=== PATIENT | female | born 1985 | race Asian ===

== ENCOUNTER → 2019-03-15 11:18 | Outpatient (CLI) | payer OTHER, SELFPAY ==
[2019-03-15 13:13] LABS: Hematocrit 39.5 % (36-46); Mean Corpuscular HGB Conc 32.8 % (30-36); Mean Corpuscular Hemoglobin 27.9 PG (26-34); Platelet Count 295 X10^3/uL (150-400); Red Blood Cell Count 4.65 X10^6/uL (4.0-5.2); Red Cell Distribution Width 13.5 % (11.6-14.8); White Blood Cell Count 5.4 X10^3/uL (4.5-11.0)
[2019-03-15 13:39] LABS: Alanine Aminotransferase 7 IU/L (9-52); Albumin 4.2 g/dL (3.5-5.0); Albumin Globulin Ratio 1.2 (1.0-2.8); Alkaline Phosphatase 45 U/L (38-126); Aspartate Aminotransferase 17 IU/L (14-36); Bilirubin Total 0.3 mg/dL (0.2-1.3); Blood Urea Nitrogen 9 mg/dL (7-17); Calcium 8.7 mg/dL (8.4-10.2); Carbon Dioxide 27 mmol/L (22-32); Chloride 103 mmol/L (98-107); Cholesterol 141 mg/dL (140-199); Estimated Glomerular Filt Rate > 60.0 mL/min (>60); Globulin 3.4 g/dL (1.7-4.1); Glucose 77 mg/dL (70-100); HDL Cholesterol 41 mg/dL (40-60); HEMOLYSIS < 15 (0-50); LDL Cholesterol Calculated 74 mg/dL (<100); Potassium 3.8 mmol/L (3.4-5.1); Sodium 139 mmol/L (137-145); Total Protein 7.6 g/dL (6.3-8.2); Triglycerides 132 mg/dL (35-150)
[2019-03-15 14:09] LABS: TSH w/ Reflex to FT4 2.05 uIU/mL (0.47-4.68)
[2019-03-15 15:21] LABS: Neutrophils Absolute Manual 3132 /uL (3000-5900); RBC Morphology Normal Morphology; Total Cells Counted 100
== END ==
PROVIDERS: PCP Nurse Practitioner; Visit Provider Nurse Practitioner
DX: R22.2 Localized swelling, mass and lump, trunk (principal); R22.32 Localized swelling, mass and lump, left upper limb
CPT/HCPCS: 36415; 80053; 80061; 84443; 85025

== ENCOUNTER → 2019-05-09 11:04 | Outpatient (CLI) | payer OTHER, SELFPAY ==
[2019-05-09 12:37] LABS: Hepatitis B Surface Antigen NEGATIVE s/c (NEGATIVE)
[2019-05-09 12:58] LABS: HIV 1 & 2 Ab/Ag 4th Gen Combo NEGATIVE (NEGATIVE); Hep C Virus Ab w/Reflex Quant NEGATIVE s/c (NEGATIVE)
[2019-05-12 16:21] LABS: Syphilis AB Cascading Reflex NEGATIVE (Negative)
== END ==
PROVIDERS: PCP Nurse Practitioner; Visit Provider Nurse Practitioner
DX: Z01.419 Encounter for gynecological examination (general) (routine) without abnormal findings (principal)
CPT/HCPCS: 36415; 86780; 86803; 87340; 87389

== ENCOUNTER → 2019-05-23 09:16 | Outpatient (CLI) | payer OTHER, SELFPAY ==
--- NOTE | 2019-05-23 09:17 | DI.RAD.S_ITS ---
PROCEDURE: XR CHEST 2V INDICATIONS: cough TECHNIQUE: 2 views of the chest were acquired. COMPARISON: None. FINDINGS: Surgical changes and devices: None. Lungs and pleura: Lungs are clear. No pleural effusions or pneumothorax. Mediastinum: Mediastinal contours are normal. Heart size is normal. Bones and chest wall: No suspicious bony abnormalities. Soft tissues appear unremarkable. IMPRESSION: No acute cardiopulmonary disease. Dictated by: Naida Morrow M.D. on 05/23/2019 at 10:07 Approved by: Naida Morrow M.D. on 05/23/2019 at 10:08
== END ==
PROVIDERS: PCP Nurse Practitioner; Visit Provider Nurse Practitioner
DX: R05 Cough (principal); R06.02 Shortness of breath; R53.83 Other fatigue
CPT/HCPCS: 71046

== ENCOUNTER → 2019-06-05 12:38 | Outpatient (CLI) | payer OTHER, SELFPAY ==
--- NOTE | 2019-06-05 12:41 | DI.MG.S_ITS ---
BILATERAL DIGITAL DIAGNOSTIC MAMMOGRAM 3D/2D: 06/05/2019 CLINICAL: Baseline. Left breast lump and pain. No prior exams were available for comparison. The tissue of both breasts is heterogeneously dense. This may lower the sensitivity of mammography. No significant masses, calcifications, or other findings are seen in either breast. IMPRESSION: INCOMPLETE: NEEDS ADDITIONAL IMAGING EVALUATION There is no abnormality seen in the left breast to correspond with the pain in the upper inner quadrant, however, ultrasound is recommended. There is no abnormality seen in the left axilla to correspond with the palpable abnormality in the left axilla, however, ultrasound is recommended. This exam was interpreted at Station ID: [id number]. NOTE: For mammograms, a report in lay terms will be sent to the patient. Approximately 15% of breast malignancies will not be visualized mammographically. In the management of a palpable breast mass, a negative mammogram must not discourage biopsy of a clinically suspicious lesion. Electronically Signed By: Leo chaudhary/nguyen:06/05/2019 13:49:12 ACR BI-RADS Category 0: Incomplete [id number]
--- NOTE | 2019-06-05 12:41 | DI.US.S_ITS ---
LIMITED ULTRASOUND OF LEFT BREAST AND AXILLA: 06/05/2019 CLINICAL: Left axillary lump with left breast (upper inner quadrant) pain. Comparison is made to exam dated: 06/05/2019 [facility]. Color flow and real-time ultrasound of the left breast upper inner quadrant and axilla regions were performed on the areas of interest. There is a 0.3 cm x 0.3 cm x 0.3 cm subcutaneous round cystic lesion in the left axilla. This round cyst is hypoechoic with internal echoes and posterior acoustic enhancement. This correlates as palpated. Color flow imaging demonstrates that there is no vascularity present. IMPRESSION: PROBABLY BENIGN The 0.3 cm x 0.3 cm x 0.3 cm round cyst likely represents a sebaceous cyst and is probably benign. A follow-up ultrasound in 6 months is recommended. There is no abnormality seen in the left breast to correspond with the pain in the upper inner quadrant, however, clinical followup is recommended. A follow-up ultrasound in 6 months is recommended to demonstrate stability. This exam was interpreted at Station ID: [id number]. Electronically Signed By: Leo Frye M.D. ddsandrine/:06/05/2019 14:12:13 letter sent: Followup Recommended Ultrasound BI-RADS: 3 Probably benign
== END ==
PROVIDERS: PCP Nurse Practitioner; Visit Provider Nurse Practitioner
DX: R92.8 Other abnormal and inconclusive findings on diagnostic imaging of breast (principal); N64.4 Mastodynia; N60.02 Solitary cyst of left breast
CPT/HCPCS: 76642; 77066; G0279

== ENCOUNTER → 2019-06-05 14:15 | Outpatient (CLI) | payer OTHER, SELFPAY ==
--- NOTE | 2019-06-20 15:53 | PM.CARDMON.1 ---
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 All of these events were associated with sinus rhythm only Data: Minimum heart rate identified was 52 beats per minute at 03:51 on 06/11/2019 Maximum heart rate was 131 beats per minute at 10:32 on 06/08/2019 No ventricular or supraventricular ectopic beats were identified Impression: No dysrhythmias identified on this study, therefore no cardiac etiology for patient's reported symptoms of palpitations identified
== END ==
PROVIDERS: PCP Nurse Practitioner; Visit Provider Nurse Practitioner
DX: R00.2 Palpitations (principal)
CPT/HCPCS: 0296T; 0298T

== ENCOUNTER → 2020-02-02 09:08 | Outpatient (CLI) | payer OTHER, SELFPAY ==
--- NOTE | 2020-02-02 09:09 | DI.US.S_ITS ---
LIMITED ULTRASOUND OF LEFT BREAST AND AXILLA: 02/02/2020 CLINICAL: 6 month follow-up of pain and palp lump. Comparison is made to exams [facility] and real-time ultrasound of the left breast upper inner quadrant and axilla regions were performed on the areas of interest. There is a benign 0.3 cm x 0.3 cm x 0.5 cm oval cyst within the skin of the left axillary tail. This oval cyst is hypoechoic with a well-defined boundary, internal echoes, and posterior acoustic enhancement. This abnormality is not significantly changed and correlates as palpated. There is a small linear tract extending to the skin. Color flow imaging demonstrates that there is no vascularity present. IMPRESSION: BENIGN There is no sonographic evidence of malignancy. The 0.3 cm x 0.3 cm x 0.5 cm oval cyst within the skin is consistent with a sebaceous cyst and is benign. There is no abnormality seen in the left axilla to correspond with the new palpable abnormality in the left axilla, however, clinical followup is recommended. There is no abnormality seen in the left breast to correspond with the palpable abnormality in the upper inner quadrant, however, clinical followup is recommended. This exam was interpreted at Station ID: [id number]. Electronically Signed By: Leo chaudhary/:02/02/2020 10:55:13 letter sent: Clinical Evaluation Ultrasound BI-RADS: 2 Benign
== END ==
PROVIDERS: PCP Nurse Practitioner; Referring Provider Nurse Practitioner; Visit Provider Nurse Practitioner
DX: R92.8 Other abnormal and inconclusive findings on diagnostic imaging of breast (principal); N63.22 Unspecified lump in the left breast, upper inner quadrant; N60.02 Solitary cyst of left breast; R35.0 Frequency of micturition
CPT/HCPCS: 76642; 81001

== ENCOUNTER → 2020-02-02 10:46 | Outpatient (CLI) | payer OTHER, SELFPAY ==
[2020-02-02 13:23] LABS: Bacteria Urine None Seen
[2020-02-02 13:45] LABS: Appearance Urine UA CLEAR; Bilirubin Urine UA NEGATIVE (NEGATIVE); Color Urine UA YELLOW; Glucose Urine UA NEGATIVE (Negative); Ketones Urine UA NEGATIVE (NEGATIVE); Leukocyte Esterase Urine UA TRACE (NEGATIVE); Nitrite Urine UA NEGATIVE (Negative); Occult Blood Urine UA 3+ (Negative); Protein Urine UA NEGATIVE (Negative); Specific Gravity Urine UA 1.015 (1.000-1.035); Urobilinogen Urine UA 0.2 E.U./dL (0.2)
[2020-02-02 13:57] LABS: Culture Indicated Urine Cult Not Indicated; RBC Urine 10-30/HPF (0-5/HPF); Squamous Epithelial Cell Urine 5-10 /HPF (0-5/HPF); WBC Urine 1-5/HPF (0-5/HPF)
== END ==
PROVIDERS: PCP Nurse Practitioner; Visit Provider Nurse Practitioner
DX: R35.0 Frequency of micturition (principal)
CPT/HCPCS: 81001

== ENCOUNTER → 2020-03-29 09:52 | Outpatient (CLI) | payer OTHER, SELFPAY ==
[2020-03-29 09:55] LABS: WBC Urine None Seen (0-5/HPF)
[2020-03-29 11:16] LABS: Appearance Urine UA CLEAR; Bilirubin Urine UA NEGATIVE (NEGATIVE); Color Urine UA YELLOW; Glucose Urine UA NEGATIVE (Negative); Ketones Urine UA NEGATIVE (NEGATIVE); Leukocyte Esterase Urine UA NEGATIVE (NEGATIVE); Nitrite Urine UA NEGATIVE (Negative); Occult Blood Urine UA 3+ (Negative); Protein Urine UA NEGATIVE (Negative); Urobilinogen Urine UA 0.2 E.U./dL (0.2); pH Urine UA 6.5 (4.5-8.0)
[2020-03-29 11:25] LABS: Bacteria Urine Occasional (0-1); Culture Indicated Urine Cult Not Indicated; RBC Urine 1-5/HPF (0-5/HPF); Squamous Epithelial Cell Urine 1-5 /HPF (0-5/HPF)
== END ==
PROVIDERS: PCP Nurse Practitioner; Referring Provider Nurse Practitioner; Visit Provider Nurse Practitioner
DX: R30.0 Dysuria (principal)
CPT/HCPCS: 81001

== ENCOUNTER → 2020-05-11 15:31 | Outpatient (CLI) | payer OTHER, SELFPAY ==
--- NOTE | 2020-05-11 15:33 | DI.RAD.S_ITS ---
PROCEDURE: XR CHEST 2V INDICATIONS: shortness of breath TECHNIQUE: 2 views of the chest were acquired. COMPARISON: [facility], , XR CHEST 2V, 05/23/2019, 9:15. FINDINGS: Surgical changes and devices: None. Lungs and pleura: Lungs are clear. No pleural effusions or pneumothorax. Mediastinum: Mediastinal contours are normal. Heart size is normal. Bones and chest wall: No suspicious bony abnormalities. Soft tissues appear unremarkable. IMPRESSION: No acute process. Dictated by: Vivek León M.D. on 05/11/2020 at 17:06 Approved by: Vivek León M.D. on 05/11/2020 at 17:06
== END ==
PROVIDERS: PCP Nurse Practitioner; Referring Provider Nurse Practitioner; Visit Provider Nurse Practitioner
DX: R06.02 Shortness of breath (principal)
CPT/HCPCS: 71046

== ENCOUNTER → 2020-06-16 09:17 | Outpatient (CLI) | payer OTHER, SELFPAY ==
[2020-06-16 10:22] LABS: Add Manual Diff / Slide Review NO; Basophils Absolute Auto 100 /uL (0-100); Basophils Percent Auto 0.8 % (0-2); Eosinophils Absolute Auto 100 /uL (0-450); Eosinophils Percent Auto 1.5 % (2-4); Hematocrit 38.3 % (36-46); Hemoglobin 12.5 g/dL (12.0-16.0); Lymphocytes Absolute Auto 800 /uL (1100-4500); Lymphocytes Percent Auto 10.4 % (25-40); Mean Corpuscular HGB Conc 32.6 % (30-36); Mean Corpuscular Hemoglobin 28.1 PG (26-34); Mean Corpuscular Volume 86.1 fL (80-100); Monocytes Absolute Auto 500 /uL (0-900); Monocytes Percent Auto 6.8 % (3-14); Neutrophils Absolute Auto 6500 /uL (1500-7000); Neutrophils Percent Auto 80.5 % (50-75); Platelet Count 302 X10^3/uL (150-400); Red Blood Cell Count 4.44 X10^6/uL (4.0-5.2); Red Cell Distribution Width 13.7 % (11.6-14.8)
[2020-06-16 10:42] LABS: Erythrocyte Sedimentation Rate 4 MM/HR (0-20)
[2020-06-16 10:47] LABS: Alanine Aminotransferase 11 IU/L (<35); Albumin 4.1 g/dL (3.5-5.0); Albumin Globulin Ratio 1.3 (1.0-2.8); Alkaline Phosphatase 47 U/L (38-126); Aspartate Aminotransferase 17 IU/L (14-36); BUN Creatinine Ratio 22.9 (6-22); Bilirubin Total 0.5 mg/dL (0.2-1.3); Blood Urea Nitrogen 11 mg/dL (7-17); Calcium 9.1 mg/dL (8.4-10.2); Carbon Dioxide 25 mmol/L (22-32); Chloride 106 mmol/L (98-107); Cholesterol 149 mg/dL (140-199); Estimated Glomerular Filt Rate > 60.0 mL/min (>60); Globulin 3.2 g/dL (1.7-4.1); Glucose 80 mg/dL (70-100); HDL Cholesterol 46 mg/dL (40-60); HEMOLYSIS < 15 (0-50); LDL Cholesterol Calculated 82 mg/dL (<100); Potassium 4.2 mmol/L (3.4-5.1); Sodium 137 mmol/L (137-145); Total Protein 7.3 g/dL (6.3-8.2); Triglycerides 103 mg/dL (35-150)
[2020-06-16 10:54] LABS: Rheumatoid Factor < 8.6 IU/mL (<12.0)
[2020-06-16 11:01] LABS: Free T3, Triiodothyronine Free 3.16 pg/mL (2.77-5.27); Free T4, Direct Thyroxine 0.82 ng/dL (0.78-2.19)
[2020-06-16 11:15] LABS: Thyroid Stimulating Hormone 1.56 uIU/mL (0.47-4.68)
== END ==
PROVIDERS: PCP Nurse Practitioner; Referring Provider Nurse Practitioner; Visit Provider Nurse Practitioner
DX: Z00.00 Encounter for general adult medical examination without abnormal findings (principal); F41.8 Other specified anxiety disorders; G47.00 Insomnia, unspecified; R00.2 Palpitations; R06.02 Shortness of breath; R53.83 Other fatigue
CPT/HCPCS: 36415; 80053; 80061; 84439; 84443; 84481; 85025; 85651; 86140; 86430

== ENCOUNTER → 2020-08-04 09:06 | Outpatient (CLI) | payer OTHER, SELFPAY ==
--- NOTE | 2020-08-04 09:07 | DI.CT.S_ITS ---
PROCEDURE: CT ABDOMEN PELVIS WO/W CON INDICATIONS: hematuria TECHNIQUE: Optional 5 mm thick noncontrast images acquired from the diaphragm to the symphysis pubis. After the administration of intravenous contrast, 5 mm thick images acquired from the diaphragm to the symphysis pubis after a 10-minute delay. 2 mm thick coronal and sagittal reformats were then performed of the kidneys and ureters. For radiation dose reduction, the following was used: automated exposure control, adjustment of mA and/or kV according to patient size. COMPARISON: None. FINDINGS: Image quality: Excellent. Lung bases: Lung bases are clear. Heart size is normal. Urinary system: Both kidneys are normal in size, without hydronephrosis or nephrolithiasis on pre-contrast images. No perinephric fat stranding. There is normal bilateral renal enhancement. A 1.7 cm corticomedullary bilobed cyst is present in the lower pole of the left kidney. There are no suspicious solid renal masses. Renal calyces appear normal in morphology when filled with contrast. Opacified portions of both ureters demonstrate normal caliber. Bladder wall thickness is normal. No calcified bladder stones. Other solid organs: Liver is normal in size and markedly homogeneously hypodense. There is relative hyperdensity in the gallbladder fossa. No suspicious liver masses.. Gallbladder appears normal . Biliary system is non dilated. Pancreas enhances normally. Spleen is normal in size and enhancement. No adrenal nodules. Peritoneum and bowel: Bowel loops demonstrate normal wall thickness and caliber. No free fluid or air. Nodes and vessels: No retroperitoneal or mesenteric adenopathy by size criteria. Aorta and inferior vena cava are normal in size. Abdominal wall: No ventral hernias. Pelvis: No pathologic free pelvic fluid. No inguinal hernias or adenopathy. The anteverted uterus demonstrates an arcuate or subseptate morphology. Normal ovaries. Bones: No suspicious bony lesions. No vertebral body compression fractures. IMPRESSION: 1. No evidence of urinary calcifications or obstructive uropathy. 2. No suspicious soft tissue masses to suggest a cause of hematuria. 3. Hepatic steatosis. Dictated by: Nati Phillips M.D. on 08/04/2020 at 10:06 Approved by: Nati Phillips M.D. on 08/04/2020 at 10:15
== END ==
PROVIDERS: PCP Nurse Practitioner; Referring Provider Specialist; Visit Provider Specialist
DX: R31.9 Hematuria, unspecified (principal); K76.0 Fatty (change of) liver, not elsewhere classified
CPT/HCPCS: 74178; Q9967

== ENCOUNTER → 2020-10-12 09:14 | Outpatient (CLI) | payer OTHER, SELFPAY ==
[2020-10-12 10:06] LABS: Alanine Aminotransferase 27 IU/L (<35); Albumin 4.7 g/dL (3.5-5.0); Albumin Globulin Ratio 1.4 (1.0-2.8); Alkaline Phosphatase 55 U/L (38-126); Aspartate Aminotransferase 28 IU/L (14-36); BUN Creatinine Ratio 15.4 (6-22); Bilirubin Total 0.3 mg/dL (0.2-1.3); Blood Urea Nitrogen 8 mg/dL (7-17); Calcium 9.3 mg/dL (8.4-10.2); Carbon Dioxide 28 mmol/L (22-32); Chloride 103 mmol/L (98-107); Estimated Glomerular Filt Rate > 60.0 mL/min (>60); Globulin 3.4 g/dL (1.7-4.1); Glucose 97 mg/dL (70-100); HEMOLYSIS < 15 (0-50); Potassium 3.7 mmol/L (3.4-5.1); Sodium 139 mmol/L (137-145); Total Protein 8.1 g/dL (6.3-8.2)
[2020-10-12 11:44] LABS: Pregnancy Test Urine Negative (Negative)
== END ==
PROVIDERS: PCP Nurse Practitioner; Referring Provider Nurse Practitioner; Visit Provider Nurse Practitioner
DX: L70.9 Acne, unspecified (principal); Z01.812 Encounter for preprocedural laboratory examination
CPT/HCPCS: 36415; 80053; 81025

== ENCOUNTER → 2020-11-04 08:36 | Outpatient (CLI) | payer OTHER, SELFPAY ==
[2020-11-04 09:13] LABS: Hematocrit 38.9 % (36-46); Mean Corpuscular HGB Conc 33.4 % (30-36); Mean Corpuscular Hemoglobin 28.6 PG (26-34); Mean Corpuscular Volume 85.6 fL (80-100); Platelet Count 348 X10^3/uL (150-400); Red Blood Cell Count 4.54 X10^6/uL (4.0-5.2); Red Cell Distribution Width 13.4 % (11.6-14.8)
[2020-11-04 09:33] LABS: BUN Creatinine Ratio 21.1 (6-22); Blood Urea Nitrogen 12 mg/dL (7-17); Calcium 9.4 mg/dL (8.4-10.2); Carbon Dioxide 23 mmol/L (22-32); Chloride 105 mmol/L (98-107); Estimated Glomerular Filt Rate > 60.0 mL/min (>60); Glucose 116 mg/dL (70-100); HEMOLYSIS < 15 (0-50); Potassium 3.9 mmol/L (3.4-5.1); Sodium 138 mmol/L (137-145)
[2020-11-04 10:03] LABS: Creatinine Urine Random 48.8 mg/dL; Protein (Total) Urine Random 12 mg/dL (0-12); Protein Creatinine Ratio Urine 0.24 GRAM/24H
== END ==
PROVIDERS: PCP Nurse Practitioner; Referring Provider Internal Medicine Nephrology; Visit Provider Internal Medicine Nephrology
DX: N05.9 Unspecified nephritic syndrome with unspecified morphologic changes (principal); D63.1 Anemia in chronic kidney disease; R80.9 Proteinuria, unspecified
CPT/HCPCS: 36415; 80048; 82570; 84156; 85027

== ENCOUNTER → 2021-02-17 08:41 | Outpatient (CLI) | payer OTHER, SELFPAY ==
[2021-02-23 20:36] LABS: QuantiFERON Mitogen Value >10.00 IU/mL (.); QuantiFERON Nil Value 0.02 IU/mL (.); QuantiFERON TB Gold Plus Negative (Negative); QuantiFERON TB1 Ag Value 0.06 IU/mL (.); QuantiFERON TB2 Ag Value 0.02 IU/mL (.)
== END ==
PROVIDERS: PCP Nurse Practitioner; Referring Provider Nurse Practitioner; Visit Provider Nurse Practitioner
DX: A15.9 Respiratory tuberculosis unspecified (principal)
CPT/HCPCS: 36415; 86480

== ENCOUNTER → 2021-02-21 09:52 | Outpatient (CLI) | payer OTHER, SELFPAY ==
--- NOTE | 2021-02-21 09:53 | DI.US.S_ITS ---
ULTRASOUND OF LEFT BREAST AND AXILLA: 02/21/2021 CLINICAL: Palpable left axilla lump. Comparison is made to exams dated: 02/02/2020 ultrasound[facility]2019 [facility] ultrasound of the left breast axilla was performed. Ball scale images of the real-time examination were reviewed. There is a benign normal lymph node in the left axilla. This correlates as palpated. IMPRESSION: BENIGN There is no sonographic evidence of malignancy. The normal axillary lymph node is benign. There is no abnormality seen to correspond with the other palpable abnormality in the left axilla, however, clinical correlation is recommended. Follow-up with ACR/ACS guidelines. This exam was interpreted at Station ID: [id number]. Electronically Signed By: Curry Marquez M.D. ar/:02/21/2021 10:39:27 letter sent: Clinical Evaluation Ultrasound BI-RADS: 2 Benign
== END ==
PROVIDERS: PCP Nurse Practitioner; Referring Provider Registered Nurse; Visit Provider Registered Nurse
DX: M79.622 Pain in left upper arm (principal); N63.32 Unspecified lump in axillary tail of the left breast
CPT/HCPCS: 76882

== ENCOUNTER → 2021-04-28 15:43 | Outpatient (CLI) | payer OTHER, SELFPAY ==
[2021-04-28 17:06] LABS: HCG Quantitative /Beta subunit < 2.4 mIU/mL
== END ==
PROVIDERS: PCP Nurse Practitioner; Referring Provider Nurse Practitioner; Visit Provider Nurse Practitioner
DX: Z34.90 Encounter for supervision of normal pregnancy, unspecified, unspecified trimester (principal)
CPT/HCPCS: 36415; 84702

== ENCOUNTER → 2022-04-07 12:44 | Outpatient (CLI) | payer OTHER, SELFPAY ==
[2022-04-12 03:47] LABS: QuantiFERON Mitogen Value >10.00 IU/mL (.); QuantiFERON Nil Value 0.01 IU/mL (.); QuantiFERON TB Gold Plus Negative (Negative); QuantiFERON TB1 Ag Value 0.02 IU/mL (.); QuantiFERON TB2 Ag Value 0.02 IU/mL (.)
== END ==
PROVIDERS: PCP Nurse Practitioner; Referring Provider Nurse Practitioner; Visit Provider Nurse Practitioner
DX: Z11.1 Encounter for screening for respiratory tuberculosis (principal)
CPT/HCPCS: 36415; 86480

== ENCOUNTER 2022-04-07 12:57 | Emergency (ER) | payer OTHER, SELFPAY ==
[2022-04-07 13:00] VITALS: BP 134/87; PULSE 102; RESP 18; TEMP 37.1; O2SAT 100; BMI 24.5
--- NOTE | 2022-04-07 15:42 | DI.CT.S_ITS ---
PROCEDURE: CT ANGIO HEAD AND NECK INDICATIONS: Headache/family history aneurysm TECHNIQUE: Pre-contrast 4.5 mm thick sections acquired from the foramen magnum to the vertex. After the administration of intravenous contrast, 1 mm thick sections acquired from the aortic arch through the [place]. Post-contrast 4.5 mm thick sections then re-acquired from the foramen magnum to the vertex. 3-dimensional bqdigbd-psgxuznnm-ydivzurbmg (MIP) and/or volume rendering reformats were acquired of the central intracranial vasculature and neck separately. For radiation dose reduction, the following was used: automated exposure control, adjustment of mA and/or kV according to patient size. COMPARISON: None. FINDINGS: Image quality: Excellent. BRAIN: CSF spaces: Ventricles are normal in size and shape. Basal cisterns are patent. No extra-axial fluid collections. Brain: No midline shift. No intracranial bleeds or masses. Ball-white matter interface appears intact. Skull and face: Calvarium and facial bones appear intact, without suspicious lesions. Orbits appear normal. Sinuses: Sinuses and mastoids are clear. HEAD CT ANGIOGRAPHY: Anterior circulation: Intracranial internal carotid arteries are normal in size and flow. The flow within the paired anterior cerebral arteries is normal and symmetric. The flow within the middle cerebral arteries is normal and symmetric. The anterior communicating artery is seen. No aneurysms are seen. Posterior circulation: Visualized portions of the vertebral arteries demonstrate normal caliber, and join to form a normal appearing basilar artery. Flow within the posterior cerebral arteries is normal and symmetric. No aneurysms are seen. NECK CT ANGIOGRAPHY: Carotid system: The great vessels demonstrate a conventional anatomy as they arise from the aortic arch. The origins of the common carotid arteries appear patent. The common carotid arteries demonstrate normal caliber and courses. The bifurcation regions are both widely patent. The internal carotid arteries demonstrate normal calibers and courses. Posterior circulation: The origins of the vertebral arteries both appear widely patent. The more superior extracranial portions of both vertebral arteries also demonstrate normal courses and calibers. They join to form a normal appearing basilar artery. Soft tissues: Visualized neck soft tissues demonstrate no suspicious abnormalities. Bones: No suspicious bony lesions. Visualized cervical spine appears normally aligned. IMPRESSION: 1. No acute intracranial process. 2. No areas of hemodynamically significant stenosis, vascular occlusion or aneurysmal dilation within the anterior circulation. 3. No areas of hemodynamically significant stenosis, vascular occlusion or aneurysmal dilation within the posterior circulation. 4. No areas of hemodynamically significant stenosis, vascular occlusion or aneurysmal dilation within the neck vasculature. Any quantitative measurements of stenosis were performed using NASCET criteria. Dictated by: Bren Garcia M.D. on 04/07/2022 at 16:45 Approved by: Bren Garcia M.D. on 04/07/2022 at 16:50
--- NOTE | 2022-04-07 15:44 | ED.HA ---
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 Patient complains of constant bilateral occipital headache that radiates to both eyes that is sharp and pressure for the past 2 weeks. It is daily. Seen at walk-in clinic 2 days ago and no relief with intramuscular Toradol. She states she usually has a headache 2 days before each menses. However her last menses was 2 weeks ago and still continues to have this headache. Family history/cousin with history of brain aneurysm. Has a brother in his 30s that started migraine headaches. Patient is 36 years old. No numbness tingling or weakness. No facial droop. No slurred speech. Slow onset headache. Is 9/10. No sound or light sensitivity. No double vision or vision disturbances. Related Data Home Medications Medication Instructions Recorded Confirmed ascorbate calcium (vitamin C) 500 1 g PO Q6H 06/16/20 04/05/22 mg tablet omega-3 fatty acids 1,000 mg 1,000 mg PO DAILY 06/16/20 04/05/22 capsule (Fish Oil Concentrate) vitamin E 200 unit capsule 200 unit PO DAILY 06/16/20 04/05/22 Previous Rx's Medication Instructions Recorded drospirenone 3 mg-ethinyl 1 tab PO DAILY #84 tabs 10/31/21 estradiol 0.02 mg tablet (ADONAY (28)) Allergies Allergy/AdvReac Type Severity Reaction Status Date / Time No Known Drug Allergies Allergy Verified 04/05/22 15:54 Review of Systems Review of Systems Narrative: GENERAL: Denies chills, fatigue, malaise, fever, sweats. HEENT: Denies sinus pain, ear pain, sore throat RESPIRATORY: Denies dyspnea, cough CARDIOVASCULAR: Denies chest pain, palpitations GASTROINTESTINAL: Denies nausea, vomiting, abdominal pain : Denies dysuria, frequency, hematuria MUSCULOSKELETAL: denies muscle or bony pain SKIN: Denies rash, skin lesions NEUROLOGIC: Denies weakness, numbness, positive for headache ROS Unobtainable: All systems reviewed & are unremarkable except as noted in HPI and below Patient History Medical History Abnormal Pap smear of cervix (~2013) Depression with anxiety Hematuria History of abnormal cervical Papanicolaou smear Insomnia Left axillary pain Lower back pain Lower urinary tract symptoms (LUTS) Family History Grandfather Tuberculosis Grandfather Cancer Grandmother Cancer Father Cancer Social History marital status: Smoking Status: Former smoker alcohol intake: never caffeine: Yes Smoking Status: Former smoker alcohol intake frequency: 0-2 drinks per day Substance Use Type: does not use Exam Narrative Exam Narrative: GENERAL: in no distress, not toxic not dyspneic, shoes and socks removed HEAD: Normocephalic. Nontender scalp EYES: Pupils equal round No scleral icterus. No photophobia, no papilledema ENT: Mucous membranes moist. NECK: Trachea midline. Full active range of motion, no meningeal sign CARDIOVASCULAR: Regular rate and rhythm without murmurs RESPIRATORY: Clear to auscultation. Breath sounds equal bilaterally. No wheezes, rales, or rhonchi. GASTROINTESTINAL: Abdomen soft, non-tender EXTREMITIES: No gross deformities. BACK: No flank tenderness. NEURO: AOx4. Clear speech no facial droop steady self ?gait no foot drop. ?Light touch intact to bilateral face hands and feet. 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 ?Strong bilateral patellar reflexes. ?Steady Romberg, negative pronator drift SKIN: Warm and dry PSYCH: Not anxious, is cooperative Initial Vital Signs Initial Vital Signs: Vital Signs Temperature 98.8 F 04/07/22 13:00 Pulse Rate 102 H 04/07/22 13:00 Respiratory Rate 18 04/07/22 13:00 Blood Pressure 134/87 04/07/22 13:00 Pulse Oximetry 100 04/07/22 13:00 Oxygen Delivery Method 04/07/22 13:00 Course Course Course Narrative: No new issues during course of stay Orders Ordered: ED Orders 04/07/22 15:42 CT angio head and neck Stat 04/07/22 15:50 Complete Blood Count AUTO DIFF Stat Comprehensive Metabolic Panel Stat Test Serum,Qual Stat Discontinued Medications Dexamethasone (Dexamethasone 10 Mg/Ml Vial) 10 mg IV NOW ONE Stop: 04/07/22 15:43 Last Admin: 04/07/22 15:57 Dose: 10 mg Documented By: CHARI Diphenhydramine HCl (Diphenhydramine 50 Mg/Ml Vial) 25 mg IV NOW ONE Stop: 04/07/22 15:43 Last Admin: 04/07/22 15:57 Dose: 25 mg Documented By: CHARI Sodium Chloride (Normal Saline 0.9%) 1,000 mls @ 1,000 mls/hr IV BOLUS ONE Stop: 04/07/22 16:41 Last Infusion: 04/07/22 17:17 Dose: 0 mls/hr Documented By: Admin: 04/07/22 15:56 Dose: 1,000 mls/hr Documented By: CHARI Metoclopramide HCl (Metoclopramide 10 Mg/2 Ml Inj) 10 mg IV NOW ONE Stop: 04/07/22 15:43 Last Admin: 04/07/22 15:56 Dose: 10 mg Documented By: CHARI Reevaluation(s) Reevaluation #1: Updated patient results. They are reassuring. Patient states medicines have helped her significantly. Headache nearly gone. Patient is smiling. She desires discharge home. will be driving her home. Time: 17:11 Vital Signs Vital signs: Vital Signs - 8 hr 04/07/22 13:00 Temperature 98.8 F Pulse Rate 102 H Respiratory Rate 18 Blood Pressure 134/87 Pulse Oximetry 100 Oxygen Delivery Method Room Air MDM - Headache Differential Diagnosis Differential diagnosis: Likely migraine, tension headache, headache and other (Aneurysm) Lab Data Result diagrams: 04/07/22 15:50 04/07/22 15:50 Labs: Lab Results 04/07/22 04/07/22 04/07/22 Range/Units 15:50 15:50 15:50 WBC 9.8 (4.5-11.0) X10^3/uL RBC 4.91 (4.0-5.2) X10^6/uL Hgb 13.9 (12.0-16.0) g/dL Hct 42.0 (36-46) % MCV 85.4 (80-100) fL MCH 28.4 (26-34) PG MCHC 33.2 (30-36) % RDW 13.5 (11.6-14.8) % Plt Count 306 (150-400) X10^3/uL Neut % (Auto) 81.1 H (50-75) % Lymph % (Auto) 12.9 L (25-40) % [place] % (Auto) 5.2 (3-14) % Eos % (Auto) 0.2 L (2-4) % Baso % (Auto) 0.6 (0-2) % Neut # (Auto) 7900 H (9090-1240) /uL Lymph # (Auto) 1300 (2701-2968) /uL [place] # (Auto) 500 (0-900) /uL Eos # (Auto) 0 (0-450) /uL Baso # (Auto) 100 (0-100) /uL Sodium 139 (137-145) mmol/L Potassium 3.6 (3.4-5.1) mmol/L Chloride 102 (98-107) mmol/L Carbon Dioxide 25 (22-32) mmol/L BUN 7 (7-17) mg/dL Creatinine 0.56 (0.52-1.04) mg/dL Estimated GFR > 60 (>60) mL/min BUN/Creatinine Ratio 12.5 (6-22) Glucose 96 (70-100) mg/dL Calcium 9.5 (8.4-10.2) mg/dL Total Bilirubin 0.5 (0.2-1.3) mg/dL AST 21 (14-36) IU/L ALT 20 (<35) IU/L Alkaline Phosphatase 50 (38-126) U/L Total Protein 8.7 H (6.3-8.2) g/dL Albumin 4.8 (3.5-5.0) g/dL Globulin 3.9 (1.7-4.1) g/dL Albumin/Globulin Ratio 1.2 (1.0-2.8) Serum , Qual Negative (Negative) Point of Care Testing Test Results Positive Urine Dip Bedside Urine Glucose Negative Bedside Urine Bilirubin - Negative Bedside Urine Ketone - Negative Urine Specific [place] 1.020 Bedside Urine Occult Blood + Bedside Urine pH 6.0 Bedside Urine Protein - Negative Bedside Urine Urobilinogen - Negative Bedside Urine Nitrite - Negative Bedside Urine Leukocytes - Negative Esterase Imaging Data CTA - brain/neck: Radiologist's Impression: [address] [address] [address] Scan Report Signed Patient: Lon Swan MR#: [id number] : 1985 Acct:[id number] Age/Sex: 36 / F Date of Service: 04/07/22 Loc: ED Accession Number: [id number] ?? Procedure: CT angio head and neck Ordering Provider: Chip Faye MD PROCEDURE:? CT ANGIO HEAD AND NECK ? INDICATIONS:? Headache/family history aneurysm ? TECHNIQUE:? Pre-contrast 4.5 mm thick sections acquired from the foramen magnum to the vertex.? After the administration of intravenous contrast, 1 mm thick sections acquired from the aortic arch through the [place].? Post-contrast 4.5 mm thick sections then re-acquired from the foramen magnum to the vertex.? 3-dimensional qasiamt-ytqdsqmrd-eahpyredgq (MIP) and/or volume rendering reformats were acquired of the central intracranial vasculature and neck separately. For radiation dose reduction, the following was used:? automated exposure control, adjustment of mA and/or kV according to patient size.? ? COMPARISON:? None. ? FINDINGS:? Image quality:? Excellent.? ? BRAIN:? CSF spaces:? Ventricles are normal in size and shape.? Basal cisterns are patent.? No extra-axial fluid collections.? ? Brain:? No midline shift.? No intracranial bleeds or masses.? Ball-white matter interface appears intact.? ? Skull and face:? Calvarium and facial bones appear intact, without suspicious lesions.? Orbits appear normal.? ? Sinuses:? Sinuses and mastoids are clear.? ? HEAD CT ANGIOGRAPHY:? Anterior circulation:? Intracranial internal carotid arteries are normal in size and flow.? The flow within the paired anterior cerebral arteries is normal and symmetric.? The flow within the middle cerebral arteries is normal and symmetric.? The anterior communicating artery is seen.? No aneurysms are seen.? ? Posterior circulation:? Visualized portions of the vertebral arteries demonstrate normal caliber, and join to form a normal appearing basilar artery.? Flow within the posterior cerebral arteries is normal and symmetric.? No aneurysms are seen.? ? NECK CT ANGIOGRAPHY:? Carotid system:? The great vessels demonstrate a conventional anatomy as they arise from the aortic arch.? The origins of the common carotid arteries appear patent.? The common carotid arteries demonstrate normal caliber and courses.? The bifurcation regions are both widely patent.? The internal carotid arteries demonstrate normal calibers and courses.? ? Posterior circulation:? The origins of the vertebral arteries both appear widely patent.? The more superior extracranial portions of both vertebral arteries also demonstrate normal courses and calibers.? They join to form a normal appearing basilar artery.? ? Soft tissues:? Visualized neck soft tissues demonstrate no suspicious abnormalities.? ? Bones:? No suspicious bony lesions.? Visualized cervical spine appears normally aligned.? IMPRESSION:? ? 1. No acute intracranial process. ? 2. No areas of hemodynamically significant stenosis, vascular occlusion or aneurysmal dilation within the anterior circulation. ? 3. No areas of hemodynamically significant stenosis, vascular occlusion or aneurysmal dilation within the posterior circulation. ? 4. No areas of hemodynamically significant stenosis, vascular occlusion or aneurysmal dilation within the neck vasculature. ? Any quantitative measurements of stenosis were performed using NASCET criteria.? ? ? Dictated by: Bren Garcia M.D. on 04/07/2022 at 16:45 ? ? Approved by: Bren Garcia M.D. on 04/07/2022 at 16:50 ? MDM Narrative Medical decision making narrative: Appropriate for discharge home. Exam and laboratory studies and imaging are reassuring. Headache resolved with conservative treatment. Return precautions reviewed with patient. Patient likely starting to develop migraine headaches just as her brother did in his 30s. Patient does have family doctor to follow up with. Discharge Plan Departure Patient Disposition: Home Clinical Impression: Migraine Instructions: DI for Migraine Activity Restrictions/Additional Instructions: No driving operating machinery tonight. Please see your family doctor next week for re-evaluation and for maintenance medications for migraines. Keep well hydrated. Return if worse if any questions or concerns Prescriptions: No Action drospirenone-ethinyl estradiol [ADONAY (28)] 3-0.02 mg tablet 1 tab PO DAILY Qty: 84 4RF Rx Instructions: Take 1 tab at the same time daily for contraception. vitamin E 200 unit capsule 200 unit PO DAILY ascorbate calcium (vitamin C) 500 mg tablet 1 g PO Q6H omega-3 fatty acids [Fish Oil Concentrate] 1,000 mg capsule 1,000 mg PO DAILY Referrals: Lisa Workman ARNP [Primary Care Provider] - Visit Report Forms: Patient Portal/API
[2022-04-07] MEDS: SODIUM CHLORIDE 0.9% 1,000 ML 1000 ML IV (15:56)
[2022-04-07] MEDS: METOCLOPRAMIDE 10 MG/2 ML INJ IV (15:56)
[2022-04-07] MEDS: DEXAMETHASONE 10 MG/ML VIAL IV (15:57)
[2022-04-07] MEDS: diphenhydrAMINE 50 MG/ML VIAL 25 MG IV (15:57)
[2022-04-07 15:59] LABS: Add Manual Diff / Slide Review NO; Basophils Absolute Auto 100 /uL (0-100); Basophils Percent Auto 0.6 % (0-2); Eosinophils Absolute Auto 0 /uL (0-450); Eosinophils Percent Auto 0.2 % (2-4); Hemoglobin 13.9 g/dL (12.0-16.0); Lymphocytes Absolute Auto 1300 /uL (1100-4500); Lymphocytes Percent Auto 12.9 % (25-40); Mean Corpuscular HGB Conc 33.2 % (30-36); Mean Corpuscular Hemoglobin 28.4 PG (26-34); Mean Corpuscular Volume 85.4 fL (80-100); Monocytes Absolute Auto 500 /uL (0-900); Monocytes Percent Auto 5.2 % (3-14); Neutrophils Absolute Auto 7900 /uL (1500-7000); Neutrophils Percent Auto 81.1 % (50-75); Platelet Count 306 X10^3/uL (150-400); Red Blood Cell Count 4.91 X10^6/uL (4.0-5.2); Red Cell Distribution Width 13.5 % (11.6-14.8); White Blood Cell Count 9.8 X10^3/uL (4.5-11.0)
[2022-04-07 16:21] LABS: Alanine Aminotransferase 20 IU/L (<35); Albumin 4.8 g/dL (3.5-5.0); Albumin Globulin Ratio 1.2 (1.0-2.8); Alkaline Phosphatase 50 U/L (38-126); Aspartate Aminotransferase 21 IU/L (14-36); BUN Creatinine Ratio 12.5 (6-22); Bilirubin Total 0.5 mg/dL (0.2-1.3); Blood Urea Nitrogen 7 mg/dL (7-17); Calcium 9.5 mg/dL (8.4-10.2); Carbon Dioxide 25 mmol/L (22-32); Chloride 102 mmol/L (98-107); Estimated Glomerular Filt Rate > 60 mL/min (>60); Globulin 3.9 g/dL (1.7-4.1); Glucose 96 mg/dL (70-100); HEMOLYSIS < 15 (0-50); Potassium 3.6 mmol/L (3.4-5.1); Sodium 139 mmol/L (137-145); Total Protein 8.7 g/dL (6.3-8.2)
[2022-04-07 16:25] LABS: Pregnancy Test Serum,Qual Negative (Negative)
== END 2022-04-07 17:22 | disposition home or self-care (01) ==
PROVIDERS: Emergency Provider Emergency Medicine; PCP Nurse Practitioner
DX: G43.909 Migraine, unspecified, not intractable, without status migrainosus (principal); Z11.1 Encounter for screening for respiratory tuberculosis
CPT/HCPCS: 36415; 70496; 70498; 80053; 81003; 81025; 84703; 85025; 86480; 96361; 96374; 96375; 99283; 99284; J1100; J1200; J2765; Q9967

== ENCOUNTER → 2022-06-09 10:32 | Outpatient (CLI) | payer OTHER, SELFPAY ==
[2022-06-09 11:16] LABS: Appearance Urine UA CLEAR; Bilirubin Urine UA NEGATIVE (NEGATIVE); Color Urine UA YELLOW; Glucose Urine UA NEGATIVE (Negative); Ketones Urine UA NEGATIVE (NEGATIVE); Leukocyte Esterase Urine UA NEGATIVE (NEGATIVE); Nitrite Urine UA NEGATIVE (Negative); Occult Blood Urine UA 2+ (Negative); Protein Urine UA NEGATIVE (Negative); Specific Gravity Urine UA 1.015 (1.000-1.035); Urobilinogen Urine UA 0.2 E.U./dL (0.2); pH Urine UA 7.5 (4.5-8.0)
[2022-06-09 11:26] LABS: Add Manual Diff / Slide Review NO; Basophils Absolute Auto 100 /uL (0-100); Basophils Percent Auto 0.7 % (0-2); Eosinophils Absolute Auto 100 /uL (0-450); Eosinophils Percent Auto 0.7 % (2-4); Hematocrit 42.2 % (36-46); Hemoglobin 14.1 g/dL (12.0-16.0); Lymphocytes Absolute Auto 1500 /uL (1100-4500); Lymphocytes Percent Auto 14.7 % (25-40); Mean Corpuscular HGB Conc 33.4 % (30-36); Mean Corpuscular Hemoglobin 28.7 PG (26-34); Monocytes Absolute Auto 400 /uL (0-900); Monocytes Percent Auto 3.9 % (3-14); Neutrophils Absolute Auto 8100 /uL (1500-7000); Platelet Count 324 X10^3/uL (150-400); Red Blood Cell Count 4.91 X10^6/uL (4.0-5.2); Red Cell Distribution Width 13.6 % (11.6-14.8); White Blood Cell Count 10.1 X10^3/uL (4.5-11.0)
[2022-06-09 11:34] LABS: RBC Urine 5-10/HPF (0-5/HPF); Squamous Epithelial Cell Urine 5-10 /HPF (0-5/HPF); WBC Urine 1-5/HPF (0-5/HPF)
[2022-06-09 11:35] LABS: Bacteria Urine Few (2-10); Culture Indicated Urine Cult Not Indicated
[2022-06-09 11:38] LABS: Alanine Aminotransferase 20 IU/L (<35); Albumin Globulin Ratio 1.4 (1.0-2.8); Alkaline Phosphatase 66 U/L (38-126); Aspartate Aminotransferase 18 IU/L (14-36); BUN Creatinine Ratio 10.1 (6-22); Bilirubin Total 0.5 mg/dL (0.2-1.3); Blood Urea Nitrogen 7 mg/dL (7-17); Calcium 9.6 mg/dL (8.4-10.2); Carbon Dioxide 26 mmol/L (22-32); Chloride 98 mmol/L (98-107); Cholesterol 165 mg/dL (140-199); Estimated Glomerular Filt Rate > 60 mL/min (>60); Globulin 3.7 g/dL (1.7-4.1); Glucose 88 mg/dL (70-100); HDL Cholesterol 45 mg/dL (40-60); HEMOLYSIS < 15 (0-50); LDL Cholesterol Calculated 73 mg/dL (<100); Potassium 4.3 mmol/L (3.4-5.1); Sodium 138 mmol/L (137-145); Total Protein 8.7 g/dL (6.3-8.2); Triglycerides 236 mg/dL (35-150)
[2022-06-09 12:03] LABS: Free T3, Triiodothyronine Free 3.09 pg/mL (2.77-5.27); Free T4, Direct Thyroxine 1.03 ng/dL (0.78-2.19)
[2022-06-09 12:17] LABS: Thyroid Stimulating Hormone 1.65 uIU/mL (0.47-4.68)
[2022-06-10 07:36] LABS: HBsAg Screen Negative (Negative); Hepatitis A Antibody IgM Negative (Negative); Hepatitis B Core Antibody IgM Negative (Negative); Hepatitis C Antibody <0.1 s/co ratio (0.0-0.9)
== END ==
PROVIDERS: PCP Nurse Practitioner; Referring Provider Nurse Practitioner; Visit Provider Nurse Practitioner
DX: Z00.00 Encounter for general adult medical examination without abnormal findings (principal); Z80.0 Family history of malignant neoplasm of digestive organs; Z83.79 Family history of other diseases of the digestive system; R30.0 Dysuria; R35.0 Frequency of micturition
CPT/HCPCS: 36415; 80053; 80061; 80074; 81003; 81015; 84439; 84443; 84481; 85025

== ENCOUNTER → 2022-06-12 11:04 | Outpatient (CLI) | payer OTHER, SELFPAY ==
--- NOTE | 2022-06-12 11:07 | DI.RAD.S_ITS ---
PROCEDURE: XR CHEST 2V INDICATIONS: Night sweats, born in the [facility] TECHNIQUE: 2 views of the chest were acquired. COMPARISON: [facility], CR, XR CHEST 2V, 05/11/2020, 15:23. FINDINGS: Surgical changes and devices: None. Lungs and pleura: Lungs are clear. No pleural effusions or pneumothorax. Mediastinum: Mediastinal contours are normal. Heart size is normal. Bones and chest wall: No suspicious bony abnormalities. Soft tissues appear unremarkable. IMPRESSION: No acute cardiopulmonary pathology. No radiographic evidence of active TB. Dictated by: Fercho Rogers M.D. on 06/12/2022 at 12:43 Approved by: Fercho Rogers M.D. on 06/12/2022 at 12:45
[2022-06-14 16:40] LABS: Alpha-1-Globulin 0.3 g/dL (0.0-0.4); Alpha-2-Globulin 0.8 g/dL (0.4-1.0); Gamma Globulin 1.3 g/dL (0.4-1.8); Globulin Total 3.6 g/dL (2.2-3.9); Protein, Total 7.6 g/dL (6.0-8.5)
== END ==
PROVIDERS: PCP Nurse Practitioner; Referring Provider Nurse Practitioner; Visit Provider Nurse Practitioner
DX: D47.2 Monoclonal gammopathy (principal); R61 Generalized hyperhidrosis
CPT/HCPCS: 36415; 71046; 84155; 84165; 87207

== ENCOUNTER → 2022-07-06 12:07 | Outpatient (CLI) | payer OTHER, SELFPAY | PROVIDERS: PCP Nurse Practitioner; Referring Provider Nurse Practitioner Family; Visit Provider Nurse Practitioner Family | DX: K92.1 Melena (principal) | CPT/HCPCS: 87205 ==

== ENCOUNTER → 2022-07-08 10:44 | Outpatient (CLI) | payer OTHER, SELFPAY ==
[2022-07-08 16:46] LABS: Occult Blood 1 Negative (Negative)
[2022-07-08 16:47] LABS: Occult Blood 2 Positive (Negative); Occult Blood 3 Positive (Negative)
== END ==
PROVIDERS: PCP Nurse Practitioner; Referring Provider Nurse Practitioner Family; Visit Provider Nurse Practitioner Family
DX: K92.1 Melena (principal)
CPT/HCPCS: 82270; 87045; 87493; 87899

== ENCOUNTER → 2022-07-11 08:54 | Outpatient (CLI) | payer OTHER, SELFPAY ==
[2022-07-11 10:36] LABS: Add Manual Diff / Slide Review NO; Basophils Absolute Auto 0 /uL (0-100); Basophils Percent Auto 0.5 % (0-2); Eosinophils Absolute Auto 0 /uL (0-450); Hemoglobin 12.9 g/dL (12.0-16.0); Monocytes Absolute Auto 400 /uL (0-900)
[2022-07-11 11:04] LABS: Eosinophils Percent Auto 0.4 % (2-4); Lymphocytes Absolute Auto 700 /uL (1100-4500); Lymphocytes Percent Auto 7.7 % (25-40); Mean Corpuscular HGB Conc 33.2 % (30-36); Mean Corpuscular Hemoglobin 28.7 PG (26-34); Mean Corpuscular Volume 86.4 fL (80-100); Monocytes Percent Auto 4.5 % (3-14); Neutrophils Absolute Auto 7800 /uL (1500-7000); Neutrophils Percent Auto 86.9 % (50-75); Platelet Count 297 X10^3/uL (150-400); Red Blood Cell Count 4.51 X10^6/uL (4.0-5.2); Red Cell Distribution Width 13.7 % (11.6-14.8)
== END ==
PROVIDERS: PCP Nurse Practitioner; Referring Provider Family Medicine; Visit Provider Family Medicine
DX: K92.1 Melena (principal)
CPT/HCPCS: 36415; 85025

== ENCOUNTER → 2022-07-12 16:46 | Outpatient (CLI) | payer OTHER, SELFPAY ==
--- NOTE | 2022-07-12 16:48 | DI.US.S_ITS ---
PROCEDURE: US EXTREMELY NONVASC UPPER RT INDICATIONS: Right upper forearm mass TECHNIQUE: Real-time scanning was performed of the right forearm, with image documentation. COMPARISON: None. FINDINGS: Focused ultrasound examination of superior medial right forearm shows no discrete soft tissue mass or fluid collection. IMPRESSION: No abnormality is noted in right forearm to account for patient's symptoms. Dictated by: Fercho Rogers M.D. on 07/13/2022 at 13:23 Approved by: Fercho Rogers M.D. on 07/13/2022 at 13:24
--- NOTE | 2022-07-12 16:48 | DI.US.S_ITS ---
PROCEDURE: US EXTREMITY NONVASC LOWER LT INDICATIONS: Left thigh mass, pain TECHNIQUE: Real-time scanning was performed of the left thigh, with image documentation. COMPARISON: [facility], US, US EXTREMELY NONVASC UPPER RT, 07/12/2022, 16:59. FINDINGS: Focused ultrasound examination of left thigh at patient's reported area of palpable lump shows no discrete soft tissue mass or fluid. No gross lymphadenopathy. IMPRESSION: No abnormality is seen in anterior left thigh to account for patient's symptoms. Dictated by: Fercho Rogers M.D. on 07/13/2022 at 13:24 Approved by: Fercho Rogers M.D. on 07/13/2022 at 13:24
== END ==
PROVIDERS: PCP Nurse Practitioner; Referring Provider Nurse Practitioner; Visit Provider Nurse Practitioner
DX: R22.31 Localized swelling, mass and lump, right upper limb (principal); R22.42 Localized swelling, mass and lump, left lower limb; M79.652 Pain in left thigh; M79.601 Pain in right arm
CPT/HCPCS: 76882

== ENCOUNTER 2022-08-25 12:43 | Emergency (ER) | payer OTHER, SELFPAY ==
[2022-08-25 13:00] VITALS: BP 128/83; PULSE 73; RESP 16; TEMP 37.1; O2SAT 100; BMI 24.1
[2022-08-25 15:45] LABS: Bacteria Urine Few (2-10); Culture Indicated Urine Cult Not Indicated; RBC Urine 1-5/HPF (0-5/HPF); Squamous Epithelial Cell Urine 0-1 /HPF (0-5/HPF); WBC Urine 0-1/HPF (0-5/HPF)
--- NOTE | 2022-08-25 16:07 | DI.RAD.S_ITS ---
PROCEDURE: XR LUMBAR SPINE 2-3V INDICATIONS: bilateral lumbar radiculopathy TECHNIQUE: 3 views of the lumbar spine were acquired. COMPARISON: None. FINDINGS: Bones: 5 [id number] vertebrae are present. There is normal bony alignment. No vertebral body compression fractures. No suspicious bony lesions. Soft tissues: Overlying bowel gas pattern is normal. No suspicious soft tissue calcifications. IMPRESSION: No radiographic abnormalities. Dictated by: Ambreen Kern M.D. on 08/25/2022 at 16:24 Approved by: Ambreen Kern M.D. on 08/25/2022 at 16:25
--- NOTE | 2022-08-25 16:09 | ED.BACK ---
HPI - Back Pain/Injury <Marlene Peterson, [facility] - Last Filed: 08/25/22 17:24> General Chief Complaint: Back Pain/Injury Stated Complaint: back pain, pain in legs bilat since May Time Seen by Provider: 08/25/22 15:54 Source: patient History of Present Illness HPI Narrative: This is a 36 year female presents emergency department complaining of low back pain with bilateral sciatica, stasis has been ongoing since May. Denies weakness of extremities, incontinence or urinary retention. States that she is had a history of intermittent constipation with diarrhea, she is had occasional bright red blood in her stool and has follow-up with gastroenterology for colonoscopy coming up soon. She denies fever, chills, nausea vomiting. Denies abnormal vaginal discharge, states that her last menses ended 2 days ago. She is not had imaging of her lumbar spine in the past, denies any recent trauma. Denies recent illness. Related Data Home Medications Medication Instructions Recorded Confirmed ascorbate calcium (vitamin C) 500 1 g PO Q6H 06/16/20 08/09/22 mg tablet omega-3 fatty acids 1,000 mg 1,000 mg PO DAILY 06/16/20 08/09/22 capsule (Fish Oil Concentrate) vitamin E 200 unit capsule 200 unit PO DAILY 06/16/20 08/09/22 Previous Rx's Medication Instructions Recorded drospirenone 3 mg-ethinyl 1 tab PO DAILY #84 tabs 10/31/21 estradiol 0.02 mg tablet (ADONAY (28)) duloxetine 20 mg capsule,delayed 20 mg PO BEDTIME #30 caps 05/08/22 release (Cymbalta) doxepin 3 mg tablet 3 mg PO BEDTIME insonmia #90 tabs 06/13/22 omeprazole 20 mg capsule,delayed 20 mg PO DAILY #30 caps 06/26/22 release tolterodine 4 mg capsule,extended 4 mg PO Q24H #30 caps 07/27/22 release 24 hr mirabegron 50 mg tablet,extended 50 mg PO DAILY #90 tabs 08/09/22 release 24 hr cephalexin 500 mg capsule 500 mg PO BID 5 days #10 caps 08/25/22 lidocaine 5 % topical patch 1 patch topical DAILY PRN pain 08/25/22 (Lidoderm) (scale score 1-3) #15 ea methocarbamol 500 mg tablet 500 mg PO BEDTIME PRN muscle 08/25/22 spasm #14 tabs omeprazole 20 mg capsule,delayed 20 mg PO DAILY #14 caps 08/25/22 release prednisone 20 mg tablet 20 mg PO DAILY #5 tabs 08/25/22 Allergies Allergy/AdvReac Type Severity Reaction Status Date / Time No Known Drug Allergies Allergy Verified 08/25/22 13:00 Review of Systems <ISHA Perera - Last Filed: 08/25/22 17:24> Review of Systems ROS Unobtainable: All systems reviewed & are unremarkable except as noted in HPI and below Patient History <ISHA Perera - Last Filed: 08/25/22 17:24> Medical History Abnormal Pap smear of cervix (~2013) Depression with anxiety Family history of MS (multiple sclerosis) Hematuria History of abnormal cervical Papanicolaou smear Insomnia Left axillary pain Lower back pain Lower urinary tract symptoms (LUTS) Family History Grandfather Tuberculosis Grandfather Cancer Grandmother Cancer Father Cancer Social History marital status: Smoking Status: Former smoker alcohol intake: never caffeine: Yes Smoking Status: Former smoker alcohol intake frequency: 0-2 drinks per day Substance Use Type: does not use Exam <ISHA Perera - Last Filed: 08/25/22 17:24> Narrative Exam Narrative: Reviewed vitals signs and nursing notes. General: cooperative, comfortable, in no acute distress, well groomed HEENT: symmetrical facial expressions, moist mucous membranes Cardiovascular: regular rate and rhythm, no peripheral edema, warm extremities Respiratory: normal effort, able to speak in complete sentences, without wheezing, stridor, or abnormal breath sounds. No retractions or tachypnea. GI: abdomen soft, nontender to palpation, nondistended, without masses, rebound tenderness or exquisite tenderness with exam, without CVA tenderness bilaterally, no abdominal tenderness to palpation, complains of urinary frequency and urgency denies dysuria. MSK: moves all extremities, neurovascularly intact, no weakness, normal tone, lumbar spine is nontender to palpation, without weakness, can dorsiflex and plantar extend, bilateral leg lift exacerbates symptoms. Skin: brisk capillary refill, without pallor or erythema Neuro: normal speech and cognition, A&O x3, ambulatory, clear speech Psych: mental status is grossly normal, congruent mood, normal affect, pleasant and cooperative Initial Vital Signs Initial Vital Signs: Vital Signs Temperature 98.8 F 08/25/22 13:00 Pulse Rate 73 08/25/22 13:00 Respiratory Rate 16 08/25/22 13:00 Blood Pressure 128/83 08/25/22 13:00 Pulse Oximetry 100 08/25/22 13:00 Oxygen Delivery Method 08/25/22 13:00 <Vonda Sky DO - Last Filed: 08/28/22 09:38> Initial Vital Signs Initial Vital Signs: Vital Signs Temperature 98.8 F 08/25/22 13:00 Pulse Rate 73 08/25/22 13:00 Respiratory Rate 16 08/25/22 13:00 Blood Pressure 128/83 08/25/22 13:00 Pulse Oximetry 100 08/25/22 13:00 Oxygen Delivery Method 08/25/22 13:00 Course <ISHA Perera - Last Filed: 08/25/22 17:24> Orders Ordered: Discontinued Medications Cephalexin HCl (Cephalexin 250 Mg Capsule) 500 mg PO NOW ONE Stop: 08/25/22 16:44 Last Admin: 08/25/22 17:52 Dose: 500 mg Documented By: TRE Ketorolac Tromethamine (Ketorolac 10 Mg Tablet) 10 mg PO NOW ONE Stop: 08/25/22 16:08 Last Admin: 08/25/22 16:36 Dose: 10 mg Documented By: RB Lidocaine (Lidocaine Patch 1 Each Adh..Patch) 1 each TOP NOW ONE Stop: 08/25/22 16:08 Last Admin: 08/25/22 16:36 Dose: 1 each Documented By: RB Ondansetron HCl (Ondansetron 4 Mg/2 Ml Inj) 4 mg IV NOW PRN PRN Reason: Nausea And Vomiting Ondansetron HCl (Ondansetron 4 Mg Odt) 4 mg SL NOW PRN PRN Reason: Nausea And Vomiting Last Admin: 08/25/22 16:36 Dose: 4 mg Documented By: RB Prednisone (Prednisone 20 Mg Tablet) 20 mg PO NOW ONE Stop: 08/25/22 16:08 Last Admin: 08/25/22 16:36 Dose: 20 mg Documented By: RB Vital Signs Vital signs: Vital Signs - 8 hr 08/25/22 13:00 Temperature 98.8 F Pulse Rate 73 Respiratory Rate 16 Blood Pressure 128/83 Pulse Oximetry 100 Oxygen Delivery Method Room Air <Vonda Sky DO - Last Filed: 08/28/22 09:38> Orders Ordered: Discontinued Medications Cephalexin HCl (Cephalexin 250 Mg Capsule) 500 mg PO NOW ONE Stop: 08/25/22 16:44 Last Admin: 08/25/22 17:52 Dose: 500 mg Documented By: TRE Ketorolac Tromethamine (Ketorolac 10 Mg Tablet) 10 mg PO NOW ONE Stop: 08/25/22 16:08 Last Admin: 08/25/22 16:36 Dose: 10 mg Documented By: RB Lidocaine (Lidocaine Patch 1 Each Adh..Patch) 1 each TOP NOW ONE Stop: 08/25/22 16:08 Last Admin: 08/25/22 16:36 Dose: 1 each Documented By: RB Ondansetron HCl (Ondansetron 4 Mg/2 Ml Inj) 4 mg IV NOW PRN PRN Reason: Nausea And Vomiting Ondansetron HCl (Ondansetron 4 Mg Odt) 4 mg SL NOW PRN PRN Reason: Nausea And Vomiting Last Admin: 08/25/22 16:36 Dose: 4 mg Documented By: RB Prednisone (Prednisone 20 Mg Tablet) 20 mg PO NOW ONE Stop: 08/25/22 16:08 Last Admin: 08/25/22 16:36 Dose: 20 mg Documented By: RB Vital Signs Vital signs: Vital Signs - 8 hr 08/25/22 13:00 Temperature 98.8 F Pulse Rate 73 Respiratory Rate 16 Blood Pressure 128/83 Pulse Oximetry 100 Oxygen Delivery Method Room Air MDM - Back Pain/Injury <ISHA Perera - Last Filed: 08/25/22 17:24> Lab Data Labs: Lab Results 08/25/22 Range/Units 15:10 Urine RBC 1-5/hpf (0-5/HPF) Urine WBC 0-1/hpf (0-5/HPF) Ur Squamous Epith Cells 0-1 /hpf (0-5/HPF) Urine Bacteria Few (2-10) H (None) Ur Culture Indicated? Cult not indicated Point of Care Testing Test Results Negative Urine Dip Bedside Urine Glucose 100 mg/dl Bedside Urine Ketone - Negative Urine Specific Spencer 1.015 Bedside Urine Occult Blood ++ Bedside Urine pH 6.0 Bedside Urine Protein - Negative Bedside Urine Urobilinogen - Negative Bedside Urine Nitrite - Negative Bedside Urine Leukocytes - Negative Esterase Imaging Data lumbar spine XR: Radiologist's Impression: PROCEDURE:? XR LUMBAR SPINE 2-3V ? INDICATIONS:? bilateral lumbar radiculopathy ? TECHNIQUE:? 3 views of the lumbar spine were acquired.? ? COMPARISON:? None. ? FINDINGS:? ? Bones:? 5 [id number] vertebrae are present.? There is normal bony alignment.? No vertebral body compression fractures.? No suspicious bony lesions.? ? Soft tissues:? Overlying bowel gas pattern is normal.? No suspicious soft tissue calcifications.? ? ? IMPRESSION:? No radiographic abnormalities. ? ? ? Dictated by: Ambreen Kern M.D. on 08/25/2022 at 16:24 ? ? Approved by: Ambreen Kern M.D. on 08/25/2022 at 16:25 ? MDM Narrative Medical decision making narrative: Chief Complaint: Back with bilateral sciatica, urinary frequency Differential diagnoses include but are not limited to: Acute cystitis, pyelonephritis, nephrolithiasis, lumbar radiculopathy, PID, STI, pelvic infection, colitis, diverticulitis, appendicitis, cute fracture, renal colic, pyelonephritis, degenerative joint and or disc disease,, cauda equina , AAA, viscus perforation, osteomyelitis or epidural abscess, disc injury/herniation w/radiculopathy, degenerative arthritis, spinal stenosis, trauma, ligamental injury, paraspinal or other muscular strain, chronic pain, osteoarthritis, and critical cord compression. I have reviewed the patient's vital signs and nursing notes as well as prior records if available. Lab test results independently reviewed, pertinent findings: UA shows few bacteria and was sent for culture, wet mount came back negative for WBCs and bacteria Independently reviewed imaging including: Lumbar spine x-ray without acute abnormality, fracture or other osseous abnormality Discussion: 36-year-old female who presents with complaint of bilateral sciatica down both legs after seeing her primary care provider and get a referral to physical therapy. She states this is for another couple of weeks. She denies any recent trauma, she is afebrile, denies chills, endorses urinary frequency and urgency, her UA shows bacteria but does not show blood or WBCs. Wet mount is negative for clue cells or WBCs, will treat for acute cystitis and lumbar radiculopathy without signs and symptoms of pyelonephritis or nephrolithiasis. Patient does not have spinal tenderness to palpation, she does not have any red flag low back pain symptoms. Shared decision making: with patient regarding plan of care Patient's symptoms improved over duration of stay with above-stated therapies. Social considerations that may affect disposition: Questions are addressed and there is agreement with the plan and for follow-up. Patient is appropriate for outpatient management. MIPS: This encounter doesn't have any diagnosis' associated with MIPS criteria. <Vonda Sky, DO - Last Filed: 08/28/22 09:38> Lab Data Labs: Lab Results 08/25/22 Range/Units 15:10 Urine RBC 1-5/hpf (0-5/HPF) Urine WBC 0-1/hpf (0-5/HPF) Ur Squamous Epith Cells 0-1 /hpf (0-5/HPF) Urine Bacteria Few (2-10) H (None) Ur Culture Indicated? Cult not indicated Point of Care Testing Test Results Negative Urine Dip Bedside Urine Glucose 100 mg/dl Bedside Urine Ketone - Negative Urine Specific Spencer 1.015 Bedside Urine Occult Blood ++ Bedside Urine pH 6.0 Bedside Urine Protein - Negative Bedside Urine Urobilinogen - Negative Bedside Urine Nitrite - Negative Bedside Urine Leukocytes - Negative Esterase Discharge Plan Departure Patient Disposition: Home Clinical Impression: Lumbar radiculopathy Acute cystitis Qualifiers: Hematuria presence: without hematuria Qualified Code(s): N30.00 - Acute cystitis without hematuria Instructions: Acute Cystitis, DI for Back Pain With Sciatica Activity Restrictions/Additional Instructions: *You have been diagnosed with back pain acute exacerbation, a bladder infection, the wet mount test was negative pelvic infection otherwise. Please stay hydrated, take this antibiotic 3 times a day for the next 5 days. Please take ibuprofen Tylenol as needed for your pain, take the prednisone each morning for the next 5 days with food and water. Use topical lidocaine patches if there helpful, muscle relaxers as needed for spasms, follow-up with your primary care provider if not better and go to physical therapy. Please return here if still having symptoms of concern. Thank you for your patients today, I hope you feel better soon. *What to do: *Please continue to take your regular medications as directed. [ x] New medication prescriptions sent to your pharmacy: [ [facility]] [ ] New medication written as a paper prescription [ ] No new medications given *Please follow up with your primary care provider in 2-3 days, call for an appointment. Let them know you were seen in the Emergency Department and that we asked that you be seen for follow-up. We will electronically transmit a record of today's note if your PCP is in our system *If you do not have a primary care provider please contact [phone] to establish care with one of the [facility] primary care providers. *Return to Emergency Department if you should have any new, worsening, or concerning symptoms, such as [fever greater than 101F, chills, worsening pain, persistent vomiting or other bothersome symptoms]. Prescriptions: New cephalexin 500 mg capsule 500 mg PO BID 5 Days Qty: 10 0RF methocarbamol 500 mg tablet 500 mg PO BEDTIME PRN (Reason: muscle spasm) Qty: 14 0RF prednisone 20 mg tablet 20 mg PO DAILY Qty: 5 0RF lidocaine [Lidoderm] 5 % adhesive patch,medicated 1 patch topical DAILY PRN (Reason: pain (scale score 1-3)) Qty: 15 0RF Rx Instructions: leave on most painful area for up to 12 hrs omeprazole 20 mg capsule,delayed release(DR/EC) 20 mg PO DAILY Qty: 14 0RF No Action drospirenone-ethinyl estradiol [ADONAY (28)] 3-0.02 mg tablet 1 tab PO DAILY Qty: 84 4RF Rx Instructions: Take 1 tab at the same time daily for contraception. duloxetine [Cymbalta] 20 mg capsule,delayed release(DR/EC) 20 mg PO BEDTIME Qty: 30 2RF Rx Instructions: Take 1 capsule at bedtime daily for depression, anxiety, insomnia doxepin 3 mg tablet 3 mg PO BEDTIME Qty: 90 1RF Rx Instructions: Take 1 tab at bedtime for insomnia. May increase by 3mg/night to max dose 9mg. PA approved through 06/13/24 tolterodine 4 mg capsule,extended release 24hr 4 mg PO Q24H Qty: 30 1RF Rx Instructions: Take 1 capsule daily for urinary frequency. omeprazole 20 mg capsule,delayed release(DR/EC) 20 mg PO DAILY Qty: 30 1RF Rx Instructions: Take 1 tab daily for epigastric pain. vitamin E 200 unit capsule 200 unit PO DAILY ascorbate calcium (vitamin C) 500 mg tablet 1 g PO Q6H omega-3 fatty acids [Fish Oil Concentrate] 1,000 mg capsule 1,000 mg PO DAILY mirabegron 50 mg tablet extended release 24 hr 50 mg PO DAILY Qty: 90 3RF Referrals: Lisa Workman ARNP [Primary Care Provider] - Stand Alone Forms: Patient Portal/API <Vonda Sky DO - Last Filed: 08/28/22 09:38> Cosign ED Attending Cosignature Attestation: I was immediately available in the department for consultation. Documentation has been reviewed.
[2022-08-25] MEDS: LIDOCAINE PATCH 1 EACH ADH..PATCH TOP (16:36)
[2022-08-25] MEDS: KETOROLAC 10 MG TABLET PO (16:36)
[2022-08-25] MEDS: ONDANSETRON 4 MG ODT SL (16:36)
[2022-08-25] MEDS: predniSONE 20 MG TABLET PO (16:36)
[2022-08-25] MEDS: cephALEXin 250 MG CAPSULE 500 MG PO (17:52)
[2022-08-25 17:58] VITALS: BP 112/65; PULSE 89; RESP 18; O2SAT 98
== END 2022-08-25 17:58 | disposition home or self-care (01) ==
PROVIDERS: Emergency Medicine; Emergency Provider Nurse Practitioner Critical Care Medicine; PCP Nurse Practitioner
DX: M54.16 Radiculopathy, lumbar region (principal); N30.00 Acute cystitis without hematuria
CPT/HCPCS: 72100; 81003; 81015; 81025; 87086; 87210; 99283

== ENCOUNTER → 2022-08-30 11:56 | Outpatient (CLI) | payer OTHER, SELFPAY ==
--- NOTE | 2022-08-30 11:57 | DI.RAD.S_ITS ---
PROCEDURE: XR TIBIA FIBULA LT 2V INDICATIONS: Left leg pain TECHNIQUE: 2 views of the tibia and fibula were acquired. COMPARISON: None. FINDINGS: Bones: No fractures or dislocations. No suspicious bony lesions. Soft tissues: No suspicious soft tissue calcifications or masses. IMPRESSION: No acute radiographic findings. Dictated by: Ambreen Kern M.D. on 08/30/2022 at 16:54 Approved by: Ambreen Kern M.D. on 08/30/2022 at 16:54
--- NOTE | 2022-08-30 11:57 | DI.RAD.S_ITS ---
PROCEDURE: XR ANKLE LT MIN 3V INDICATIONS: Left leg pain TECHNIQUE: 3 views of the ankle were acquired. COMPARISON: None. FINDINGS: Bones: No fractures or dislocations. Ankle mortise is normally aligned. No suspicious bony lesions. Soft tissues: No tibiotalar joint effusion. Achilles tendon appears normal. IMPRESSION: No acute radiographic findings. Dictated by: Ambreen Kern M.D. on 08/30/2022 at 16:54 Approved by: Ambreen Kern M.D. on 08/30/2022 at 16:54
== END ==
PROVIDERS: PCP Nurse Practitioner; Referring Provider Nurse Practitioner Family; Visit Provider Nurse Practitioner Family
DX: M79.605 Pain in left leg (principal)
CPT/HCPCS: 73590; 73610

== ENCOUNTER 2022-09-21 11:14 | Day surgery (SDC) | payer OTHER, SELFPAY ==
--- NOTE | 2022-09-21 | PATH_ITS ---
[facility] Accession Number: [id number] No. of containers..02 Tissue . 01 Material submitted: . PART A: duodenum - DUODENUM BIOPSY PART B: gastrointestinal site - ANTRUM BIOPSY . 01 Diagnosis: A. Duodenum, Biopsy: Duodenal mucosa with no diagnostic abnormality. Negative for active inflammation, features of sprue, dysplasia, or malignancy. . B. Stomach, Antrum, Biopsy: Antral mucosa with mild chronic gastritis. Negative for Helicobacter organisms by immunohistochemistry. Negative for intestinal metaplasia. Negative for dysplasia and malignancy. [facility] 09/26/2022 1142 Local . 01 Electronically signed: . Marlene Abbasi MD, Pathologist NPI- [id number] . 01 Gross description: . A. Received in formalin, labeled duodenum biopsy, is a 2 mm portion of bray tissue. Totally embedded in cassette A1. B. Received in formalin, labeled antrum biopsy, are 1-3 mm portions of bray tissue. Totally embedded in cassette B1. ([id number]) /[place] 09/23/2022 1636 Local . 01 Microscopic: . B. An immunohistochemical stain was performed to evaluate for Helicobacter organisms and is negative. The control stain showed appropriate reactivity. . . * This test was developed and its performance characteristics determined by [facility]. It has not been cleared or approved by the U.S. Food and Drug Administration. The FDA has determined that such clearance or approval is not necessary. This test is used for clinical purposes. It should not be regarded as investigational or for research. . 01 Pathologist provided ICD-10: K62.5 . 01 CPT . 809857, 615997, E42674 Specimen Comment: A courtesy copy of this report has been sent to [phone] Performed at: 01 [facility] [address] [facility], [place], [place] [id number] MD Leo Andrea MD Phone: [phone]
[2022-09-21 12:05] VITALS: BP 132/84; PULSE 82; RESP 16; TEMP 36.4; O2SAT 100; BMI 23.8
--- NOTE | 2022-09-21 13:09 | P.HP_ITS ---
History of Present Illness History of Present Illness Date Patient Seen: 09/21/22 Time Patient Seen: 13:09 [place] [facility] [place]ative: Lon is here for her EGD and colonoscopy. See office note from July for details. She continues to have rectal bleeding and melena. Patient History Medical History Abnormal Pap smear of cervix (~2013) Depression with anxiety Family history of MS (multiple sclerosis) Hematuria History of abnormal cervical Papanicolaou smear Insomnia Left axillary pain Lower back pain Lower urinary tract symptoms (LUTS) Family & Social History Family History Grandfather Tuberculosis Grandfather Cancer Grandmother Cancer Father Cancer Social History: household members spouse Tobacco & Substance use: Smoking Status Former smoker alcohol intake never alcohol intake frequency 0-2 drinks per day Substance Use Type does not use Meds Home Medications and Allergies Home Medications Medication Instructions Recorded Confirmed Type omega-3 fatty acids 1,000 mg 1,000 mg PO DAILY 06/16/20 08/29/22 History capsule (Fish Oil Concentrate) vitamin E 200 unit capsule 200 unit PO DAILY 06/16/20 08/29/22 History drospirenone 3 mg-ethinyl 1 tab PO DAILY #84 tabs 10/31/21 09/21/22 Rx estradiol 0.02 mg tablet (ADONAY (28)) sodium sul 1.479 gram-potas ch See Rx Instructions PO PER PKG DIR 09/18/22 Rx 0.188 gram-magnes sul 0.225 gram #24 tabs tablet (Sutab) Allergies Allergy/AdvReac Type Severity Reaction Status Date / Time No Known Drug Allergies Allergy Verified 08/25/22 13:00 Exam Vital Signs (past 8 hours): - 09/21/22 12:05 Temperature 97.6 F Pulse Rate 82 Respiratory Rate 16 Blood Pressure 132/84 Pulse Oximetry 100 Oxygen Delivery Method Room Air Oxygen Delivery Method Room Air Const General: No acute distress Resp Effort & Inspection: normal respiratory effort Assessment & Plan Assessment and plan (1) Rectal bleeding: Status: Acute Plan Risks and benefits of EGD and colonoscopy reviewed and she would like to proceed. Time Spent With Patient Critical Care time: I spent a total of [] minutes of critical care time on this patient's care today; this time is exclusive of procedural time.
--- NOTE | 2022-09-21 13:56 | PM.OP.EC ---
Operative Date/Time/Diagnoses Date of procedure: 09/21/22 Time of procedure: 13:56 Pre-op diagnosis: Melena Post-op diagnosis: same Procedure & Clinicians Study performed: EGD and colonoscopy Same procedure as scheduled: Yes Surgeon: Ba Armas Procedure Notes Procedure in detail: Surgeon: Ba Armas MD Anesthesia: Terrance Philip DANIEL Procedure in detail: A timeout was performed. A bite blocked was placed and monitors were attached to the patient. The patient was positioned in a left lateral decubitus position. Sedation was administered by the psychiatric clinician. Once the patient was sedated the endoscope was inserted through the bite block and passed through the esophagus and stomach and into the duodenum. The duodenal mucosa looked normal. Random biopsies were taken from the duodenal mucosa. The duodenal bulb was normal. We then withdrew the scope into the stomach. There was some mild antritis and random biopsies were taken from the antrum. The rest of the stomach appeared normal. The endoscope was retroflexed and no hiatal hernia seen. The endoscope was straightned and withdrawn into the esophagus. No abnormalities were seen in the esophagus. Findings: Mild antritis Next we repositioned the patient for a colonoscopy. A digital rectal exam was performed and was normal. The colonoscope was inserted and advanced to the cecum. The appendiceal orifice was identified and photographed. The terminal ileum was intubated and was normal. The scope was slowly withdrawn over greater than 6 minutes. No abnormalities were seen throughout the colon. The scope was retroflexed in the rectum and no abnormalities were seen. Findings: Normal colon EBL: 5 mL Scope withdrawal time: 6 minutes Sedation minutes: 28 minutes Post-procedure Disposition: PACU
[2022-09-21 14:01] VITALS: BP 106/71; PULSE 85; RESP 24; TEMP 36.1; O2SAT 100
[2022-09-21 14:05] VITALS: BP 108/76; PULSE 85; RESP 23; O2SAT 99
[2022-09-21 14:08] VITALS: BP 109/69; PULSE 72; RESP 16; TEMP 36.2; O2SAT 100
== END 2022-09-21 14:27 | disposition home or self-care (01) ==
PROVIDERS: PCP Nurse Practitioner; Referring Provider Surgery; Visit Provider Surgery
PROC: 0DJ08ZZ Inspection of Upper Intestinal Tract, Via Natural or Artificial Opening Endoscopic (ICD-10-PCS; CPT 43235; principal; 2022-09-21 12:15)
PROC: 0DJD8ZZ Inspection of Lower Intestinal Tract, Via Natural or Artificial Opening Endoscopic (ICD-10-PCS; CPT 45378; 2022-09-21 12:15)
DX: K92.1 Melena (principal); K29.50 Unspecified chronic gastritis without bleeding
CPT/HCPCS: 43239; 45378; 81025; J2704

== ENCOUNTER → 2022-11-20 15:09 | Outpatient (CLI) | payer OTHER, SELFPAY ==
--- NOTE | 2022-11-20 15:11 | DI.MRI.S_ITS ---
PROCEDURE: MR PELVIS WO CON INDICATIONS: lower back pain, leg pain TECHNIQUE: Noncontrast axial and coronal T1 spin echo and STIR through the lumbosacral plexus region. Optional contrast may be given, followed by axial and coronal T1 spin echo with fat saturation through the sacral plexus. COMPARISON: None. FINDINGS: Image quality: Excellent. Lumbosacral plexus: Superior to the piriformis muscles, the pre-plexal structures appear normal, including the lumbosacral trunk and S1 root. Just anterior to the piriformis muscles, the sacral plexus proper demonstrates normal morphology (lumbosacral trunk, S1 to S3 nerve roots). Inferior to the piriformis muscles, the sciatic nerves appear normal. Soft tissues: The piriformis muscles appear symmetric in size. No presacral masses. Rectum appears normal in caliber and wall thickness. No pathologic free pelvic fluid. No visualized adenopathy by size criteria. Bones: Marrow is normal in overall signal. No evidence of avascular necrosis of femoral head. No suspicious bony lesions. IMPRESSION: 1. No abnormality is seen in lumbosacral plexus. 2. No muscle or tendon signal abnormalities are seen in pelvis and bilateral hip. 3. No marrow signal abnormalities. No evidence of avascular necrosis of femoral heads. No fracture or dislocation. Dictated by: Fercho Rogers M.D. on 11/20/2022 at 17:24 Approved by: Fercho Rogers M.D. on 11/20/2022 at 17:26
--- NOTE | 2022-11-20 15:13 | DI.MRI.S_ITS ---
PROCEDURE: MR LUMBAR SPINE WO CON INDICATIONS: bilateral thigh burning weakness legs refractory to PT TECHNIQUE: Noncontrast sagittal T1 spin echo and T2 fast echo, sagittal STIR, and T2 fast spin echo through the lumbar spine. In cases with scoliosis, additional coronal T2 fast spin echo may be performed. COMPARISON: None. FINDINGS: Image quality: Excellent. Alignment and Curvature: There is normal bony alignment. Bone Marrow: Marrow is of normal overall signal. No acute vertebral body compression fractures. Spinal Cord: Conus medullaris terminates at the L2 level. Visualized cord demonstrates normal signal and size. Paraspinous Soft Tissues: No paravertebral masses. T12-L1: Normal appearance. L1-L2: Normal appearance. L2-L3: Normal appearance. L3-L4: Normal appearance. L4-L5: Normal appearance. L5-S1: Normal appearance. IMPRESSION: No acute abnormality. No evidence of pertinent degenerative disc disease. Dictated by: Eliazar Beltrán M.D. on 11/20/2022 at 16:20 Approved by: Eliazar Beltrán M.D. on 11/20/2022 at 16:22
== END ==
PROVIDERS: PCP Nurse Practitioner; Referring Provider Nurse Practitioner; Visit Provider Nurse Practitioner
DX: M79.651 Pain in right thigh; M79.652 Pain in left thigh; R29.898 Other symptoms and signs involving the musculoskeletal system
CPT/HCPCS: 72148; 72195

== ENCOUNTER → 2022-11-27 16:56 | Outpatient (CLI) | payer OTHER, SELFPAY ==
--- NOTE | 2022-11-27 16:58 | DI.US.S_ITS ---
PROCEDURE: US RENAL COMPLETE INDICATIONS: LOWER URINARY TRACT SYMPTOMS TECHNIQUE: Real-time scanning was performed of the kidneys and bladder, with image documentation. COMPARISON: [facility], CT, CT ABDOMEN PELVIS WO/W CON, 08/04/2020, 9:06. FINDINGS: Kidneys: Kidneys are normal in size. Right kidney measures 10.5 cm long; left kidney measures 11 cm long. Right renal cortical thickness is 1.6 cm; left renal cortical thickness is 1.7 cm. Renal cortical echotexture is normal. No hydronephrosis or nephrolithiasis. No suspicious solid mass lesions. Previous CT finding of a lower pole left renal cyst is not visualized on the current study. Bladder: Pre-void bladder volume is 222 mL. Post-void residual is 6 mL. Pre-void images demonstrate no intraluminal masses or stones. Mild bladder wall thickening is noted measures up to 5.8 millimeter in thickness. On pre-void images, bilateral ureteral jets are noted with color Doppler interrogation. (Of note, ureteral jets may not be detectable in up to 25% of cases due to insufficient differences in specific gravity between ureteral and bladder urine). Miscellaneous: No free pelvic fluid. Incidentally noted is enlarged liver measures 20.6 cm with diffusely increased liver parenchymal echotexture. IMPRESSION: 1. Unremarkable ultrasound examination of bilateral kidneys. Previous CT finding of lower pole left renal cyst is not seen on the current study. 2. Questionable mild bladder wall thickening, no discrete bladder wall mass. Small amount of postvoid residual. 3. Incidentally noted of hepatomegaly and hepatic steatosis. Dictated by: Fercho Rogers M.D. on 11/27/2022 at 17:54 Approved by: Fercho Rogers M.D. on 11/27/2022 at 17:56
== END ==
PROVIDERS: PCP Nurse Practitioner; Referring Provider Specialist; Visit Provider Specialist
DX: K76.0 Fatty (change of) liver, not elsewhere classified (principal); R39.9 Unspecified symptoms and signs involving the genitourinary system
CPT/HCPCS: 76770

== ENCOUNTER → 2022-12-01 16:14 | Outpatient (CLI) | payer OTHER, SELFPAY ==
[2022-12-01 18:54] LABS: Add Manual Diff / Slide Review NO; Basophils Absolute Auto 100 /uL (0-100); Basophils Percent Auto 0.7 % (0-2); Eosinophils Absolute Auto 100 /uL (0-450); Eosinophils Percent Auto 1.7 % (2-4); Hematocrit 40.1 % (36-46); Hemoglobin 13.3 g/dL (12.0-16.0); Lymphocytes Absolute Auto 1500 /uL (1100-4500); Lymphocytes Percent Auto 19.6 % (25-40); Mean Corpuscular HGB Conc 33.1 % (30-36); Mean Corpuscular Hemoglobin 28.8 PG (26-34); Mean Corpuscular Volume 86.8 fL (80-100); Monocytes Absolute Auto 600 /uL (0-900); Monocytes Percent Auto 7.1 % (3-14); Neutrophils Absolute Auto 5500 /uL (1500-7000); Neutrophils Percent Auto 70.9 % (50-75); Platelet Count 296 X10^3/uL (150-400); Red Blood Cell Count 4.61 X10^6/uL (4.0-5.2); Red Cell Distribution Width 13.9 % (11.6-14.8); White Blood Cell Count 7.8 X10^3/uL (4.5-11.0)
[2022-12-01 19:25] LABS: Alanine Aminotransferase 65 IU/L (<35); Albumin 4.3 g/dL (3.5-5.0); Albumin Globulin Ratio 1.3 (1.0-2.8); Alkaline Phosphatase 46 U/L (38-126); Aspartate Aminotransferase 52 IU/L (14-36); BUN Creatinine Ratio 20.3 (6-22); Bilirubin Total 0.5 mg/dL (0.2-1.3); Blood Urea Nitrogen 12 mg/dL (7-17); C-Reactive Protein Quant 0.7 mg/dL (<1.0); Calcium 9.2 mg/dL (8.4-10.2); Carbon Dioxide 23 mmol/L (22-32); Chloride 101 mmol/L (98-107); Estimated Glomerular Filt Rate > 60 mL/min (>60); Globulin 3.4 g/dL (1.7-4.1); Glucose 124 mg/dL (70-100); HEMOLYSIS < 15 (0-50); Potassium 3.3 mmol/L (3.4-5.1); Sodium 137 mmol/L (137-145); Total Protein 7.7 g/dL (6.3-8.2)
[2022-12-01 19:31] LABS: Erythrocyte Sedimentation Rate 5 MM/HR (0-20)
[2022-12-01 19:37] LABS: Rheumatoid Factor < 8.6 IU/mL (<12.0)
[2022-12-06 14:51] LABS: ANA Screen, IFA Negative (.)
== END ==
PROVIDERS: PCP Nurse Practitioner; Referring Provider Nurse Practitioner; Visit Provider Nurse Practitioner
DX: M79.651 Pain in right thigh (principal); M79.652 Pain in left thigh; R20.2 Paresthesia of skin; R22.40 Localized swelling, mass and lump, unspecified lower limb; R25.3 Fasciculation; R29.898 Other symptoms and signs involving the musculoskeletal system
CPT/HCPCS: 36415; 80053; 85025; 85651; 86038; 86140; 86430

== ENCOUNTER → 2022-12-05 09:21 | Outpatient (CLI) | payer OTHER, SELFPAY ==
--- NOTE | 2022-12-05 09:22 | DI.MRI.S_ITS ---
PROCEDURE: MR HEAD/BRAIN WO/W CON INDICATIONS: Muscular twitching, LE weakness and discomfort TECHNIQUE: Noncontrast axial T1 spin echo, axial T2 fast spin echo, sagittal and axial FLAIR, coronal T2 fast spin echo, axial gradient echo, axial diffusion and ADC through the brain. After the administration of contrast, axial and coronal and sagittal 3D VIBE or T1 spin echo with fat saturation through the brain. COMPARISON: None. FINDINGS: Image quality: Excellent. CSF Spaces: Basal cisterns are patent. No extra-axial fluid collections. Ventricles are normal in size and shape. Brain: No midline shift. No intracranial bleeds or masses. No abnormal intracranial enhancement. The brainstem appears normal. Diffusion-weighted images demonstrate no acute ischemic insults. No chronic ischemic insults. Normal intravascular flow voids are present. Skull and face: Calvarial marrow is normal in signal. Orbits appear normal. Sinuses: Sinuses and mastoids appear clear. IMPRESSION: No acute intracranial process. Dictated by: Bren Garcia M.D. on 12/05/2022 at 15:56 Approved by: Bren Garcia M.D. on 12/05/2022 at 16:01
== END ==
PROVIDERS: PCP Nurse Practitioner; Referring Provider Nurse Practitioner; Visit Provider Nurse Practitioner
DX: R20.2 Paresthesia of skin (principal); R25.3 Fasciculation; R29.898 Other symptoms and signs involving the musculoskeletal system; M79.651 Pain in right thigh; M79.652 Pain in left thigh
CPT/HCPCS: 70553; A9579

== ENCOUNTER → 2022-12-12 08:57 | Outpatient (CLI) | payer OTHER, SELFPAY ==
--- NOTE | 2022-12-12 08:58 | DI.US.S_ITS ---
PROCEDURE: US EXTREMITY NONVASC LOWER LT INDICATIONS: LEFT MID PERRY CONCAVITY TECHNIQUE: Real-time scanning was performed of the left mid perry, with image documentation. COMPARISON: [facility], US, US EXTREMITY NONVASC LOWER LT, 07/12/2022, 17:04. FINDINGS: At the area of clinical concern within the left mid perry, no focal ultrasound abnormality can be seen. No masses or fluid collections are seen. IMPRESSION: Negative ultrasound. Dictated by: Spike Hwang M.D. on 12/12/2022 at 11:13 Approved by: Spike Hwang M.D. on 12/12/2022 at 11:14
== END ==
PROVIDERS: PCP Nurse Practitioner; Referring Provider Nurse Practitioner; Visit Provider Nurse Practitioner
DX: R22.42 Localized swelling, mass and lump, left lower limb (principal)
CPT/HCPCS: 76882

== ENCOUNTER 2022-12-29 06:23 | Day surgery (SDC) | payer OTHER, SELFPAY ==
[2022-12-21 12:38] VITALS: BMI 24.5
[2022-12-29 06:45] VITALS: BP 120/81; PULSE 79; RESP 16; TEMP 36.2; O2SAT 100; BMI 24.7
[2022-12-29] MEDS: LACTATED RINGERS 1,000 ML 21 ML IV (07:01)
[2022-12-29] MEDS: ACETAMINOPHEN IV 1,000 MG/100 ML VIAL 400 MG IV (07:03)
--- NOTE | 2022-12-29 07:28 | PM.PREOP ---
Pre-operative Note COVID-19 Criteria for continued procedure: Continuing or worsening of significant or severe pain, Delay expected to result in less-positive ultimate med/surg outcome and Non-surgical alternatives not available or appropriate per current SOC Interval Note History & Physical reviewed/Exam performed by Physician: Yes Changes to H&P: No
[2022-12-29] MEDS: CEFAZOLIN 2 GM/100 ML PREMIX 100 ML IV (07:52)
[2022-12-29] MEDS: DIMETHYL SULFOXIDE 120 ML LIQUID 50 ML URE (07:59)
--- NOTE | 2022-12-29 08:02 | SUR.OPER ---
Lithotomy on padded OR bed, head on pillow, arms secured on padded arm boards at <90 degrees abduction. Legs secured in padded yellow fins stirrups.
[2022-12-29 08:11] VITALS: BP 117/79; PULSE 81; RESP 14; TEMP 36.8; O2SAT 99
--- NOTE | 2022-12-29 08:15 | P.OP_ITS ---
Operative Date/Time/Diagnoses Date of procedure: 12/29/22 Time of procedure: 08:05 Pre-op diagnosis: Bladder pain Post-op diagnosis: same Procedure & Clinicians Procedure: 1. Cystoscopy/hydrodistention/instillation DMSO Same procedure as scheduled: Yes Indications: 1. Bladder pain. 2. Lower urinary tract symptoms. Surgeon: Eli Vicente Click Yes if Unassisted: Yes Anesthesia Type: General Operative Notes Findings: 1. Urethra-normal caliber without lesion or obstruction. There were 2 small benign inflammatory polyps seen at the right bladder neck at approximately 7 o'clock. 2. Bladder-normal urothelium throughout. Normal ureteral orifices bilaterally with clear efflux. No stone, tumor, foreign body, or diverticulum seen. Bladder capacity under anesthetic was 800 cc. Following hydrodistention for 2 minutes and reinspection of the bladder, no significant petechiae formation was seen. Closure Type: not applicable Specimen(s): none sent Estimated Blood Loss (mL): 0 Blood products transfused: none Procedure in detail: The patient was positioned supine and administered general anesthesia. The lower abdomen, genitalia, and groin were then prepped and draped in sterile fashion. Twenty-two Hebrew panendoscope was then passed lower urinary tract with the findings as described above. Bladder contents were drained. The bladder was then filled at approximately 80 cm gravity height until irrigant fluid was seen exiting the bladder around the cystoscope sheath. Installation was halted at that time in 2 minute retention was conducted. The bladder contents were then drained into a calibrated pitcher. Bladder volume under anesthetic was 800 cc. Reinspection of the bladder revealed no significant petechiae formation. The bladder was drained a final time and 50 cc of DMSO were then instilled into the bladder and the valiente endoscope was removed. The patient was then repositioned in supine, was awakened, transferred to [facility] and transported recovery in stable condition. Complications: none Post-operative Condition: stable Disposition: PACU Plan for aftercare: Discharge home.
[2022-12-29 08:16] VITALS: BP 112/74; PULSE 76; RESP 14; O2SAT 99
[2022-12-29 08:21] VITALS: BP 112/75; PULSE 74; RESP 15; O2SAT 99
[2022-12-29 08:54] VITALS: BP 120/77; PULSE 61; RESP 12; O2SAT 100
--- NOTE | 2022-12-29 08:59 | SUR.PHASEII ---
Pt able to void x2. Pt states burning with urination.
== END 2022-12-29 08:59 | disposition home or self-care (01) ==
PROVIDERS: PCP Nurse Practitioner; Referring Provider Specialist; Visit Provider Specialist
PROC: 3E1K78Z Irrigation of Genitourinary Tract using Irrigating Substance, Via Natural or Artificial Opening (ICD-10-PCS; CPT 51700; principal; 2022-12-29 07:45)
DX: R39.89 Other symptoms and signs involving the genitourinary system (principal)
CPT/HCPCS: 52000; J0131; J0690; J1100; J1212; J1885; J2250; J2405; J2704; J3010

== ENCOUNTER → 2023-01-25 08:47 | Outpatient (CLI) | payer OTHER, SELFPAY | PROVIDERS: Family Provider Nurse Practitioner; PCP Nurse Practitioner; Referring Provider Nurse Practitioner; Visit Provider Nurse Practitioner | DX: M79.651 Pain in right thigh (principal); M79.652 Pain in left thigh; R25.3 Fasciculation; R20.2 Paresthesia of skin; R29.898 Other symptoms and signs involving the musculoskeletal system | CPT/HCPCS: 95886; 95908 ==

== ENCOUNTER → 2023-02-01 09:01 | Outpatient (CLI) | payer OTHER, SELFPAY | PROVIDERS: Family Provider Nurse Practitioner; PCP Nurse Practitioner; Referring Provider Nurse Practitioner; Visit Provider Nurse Practitioner | DX: M79.651 Pain in right thigh (principal); M79.652 Pain in left thigh; R25.3 Fasciculation; R29.898 Other symptoms and signs involving the musculoskeletal system; R20.2 Paresthesia of skin | CPT/HCPCS: 95886; 95912 ==

== ENCOUNTER → 2023-06-13 14:50 | Outpatient (CLI) | payer OTHER, SELFPAY ==
[2023-06-13 15:58] LABS: Alanine Aminotransferase 91 IU/L (<35); Albumin 4.5 g/dL (3.5-5.0); Albumin Globulin Ratio 1.3 (1.0-2.8); Alkaline Phosphatase 52 U/L (38-126); Aspartate Aminotransferase 54 IU/L (14-36); BUN Creatinine Ratio 17.3 (6-22); Bilirubin Total 0.7 mg/dL (0.2-1.3); Blood Urea Nitrogen 9 mg/dL (7-17); Calcium 9.4 mg/dL (8.4-10.2); Carbon Dioxide 27 mmol/L (22-32); Chloride 102 mmol/L (98-107); Estimated Glomerular Filt Rate > 60 mL/min (>60); Globulin 3.4 g/dL (1.7-4.1); Glucose 86 mg/dL (70-100); HEMOLYSIS < 15 (0-50); Potassium 3.6 mmol/L (3.4-5.1); Sodium 136 mmol/L (137-145); Total Protein 7.9 g/dL (6.3-8.2)
[2023-06-13 16:08] LABS: Hemoglobin A1C% w Est Avg Glu 5.8 % (4.0-6.0)
== END ==
PROVIDERS: Family Provider Nurse Practitioner; PCP Nurse Practitioner; Referring Provider Nurse Practitioner; Visit Provider Nurse Practitioner
DX: R79.89 Other specified abnormal findings of blood chemistry (principal); R73.01 Impaired fasting glucose
CPT/HCPCS: 36415; 80053; 83036

== ENCOUNTER → 2023-07-07 10:00 | Outpatient (CLI) | payer OTHER, SELFPAY ==
--- NOTE | 2023-07-07 10:01 | DI.MRI.S_ITS ---
PROCEDURE: MR FOREARM RT WO CON INDICATIONS: persist right forearm pain, swelling and elbow pain x10 mos TECHNIQUE: Noncontrast coronal and sagittal T1 spin echo and STIR; axial T1 spin echo and T2 fast spin echo with fat saturation through the right forearm. COMPARISON: None. FINDINGS: Image quality: Excellent. Bones: The visualized bone marrow demonstrates normal signal on all sequences. The overlying cortex appears intact. No fractures lines or intra-osseous lesions. Soft tissues: There is mild edema within posterior lateral periphery of extensor carpi radialis longus muscle at the level of mid to distal radial shaft . Rest of the scanned muscles demonstrate normal overall bulk and internal signal. Subcutaneous tissues appear normal as well. No soft tissue masses are present. IMPRESSION: 1. Finding is suggestive of low-grade muscle strain/partial-thickness tear involving posterior lateral periphery of extensor carpi radialis longus muscle at the level of mid to distal radial shaft. No other muscle or tendon signal abnormalities. 2. No marrow edema. No fracture or dislocation. 3. Please correlate with MRI of elbow report for additional findings in the elbow joint/proximal forearm. Dictated by: Fercho Rogers M.D. on 07/09/2023 at 10:46 Approved by: Fercho Rogers M.D. on 07/09/2023 at 10:50
--- NOTE | 2023-07-07 10:01 | DI.MRI.S_ITS ---
PROCEDURE: MR ELBOW RT WO CON INDICATIONS: persist right forearm pain, swelling and elbow pain x10 mos TECHNIQUE: Noncontrast coronal proton density fast spin echo and T2 fast spin echo with fat saturation, axial and sagittal T1 spin echo and T2 fast spin echo with fat saturation through the elbow. COMPARISON: None. FINDINGS: Image quality: Excellent. Lateral structures: The lateral ulnar collateral ligament and radial collateral ligament both appear thickened at their proximal insertion with mild surrounding edema. The overlying common extensor tendon also appears thickened with intrasubstance T2 hyperintense signal at its lateral epicondylar insertion. Medial structures: The ulnar collateral ligament appears intact. The overlying common flexor tendon appears normal. The ulnar nerve appears normal in size and signal within the cubital tunnel. Anterior structures: The biceps and brachialis tendons both appear intact as they insert onto the proximal radius and ulna, respectively. No bicipitoradial bursal fluid. The median and radial neurovascular bundles appear normal; no focal muscle atrophy to suggest nerve impingement. Posterior structures: The conjoint triceps tendon from the long and lateral heads appears intact. The medial head of the triceps tendon also appears normal, with direct muscle insertion onto the olecranon. No olecranon bursal fluid. Bone and cartilage: No bone marrow contusions or fractures. No osteochondral injuries. IMPRESSION: 1. Finding is consistent with mild lateral epicondylitis as described above. 2. No other muscle or tendon signal abnormalities. 3. No marrow edema. No fracture or dislocation. No osteochondral injuries. No significant joint effusion. Dictated by: Fercho Rogers M.D. on 07/09/2023 at 10:50 Approved by: Fercho Rogers M.D. on 07/09/2023 at 10:54
== END ==
PROVIDERS: Family Provider Nurse Practitioner; PCP Nurse Practitioner; Referring Provider Nurse Practitioner; Visit Provider Nurse Practitioner
DX: M25.521 Pain in right elbow (principal); R22.31 Localized swelling, mass and lump, right upper limb; M79.631 Pain in right forearm
CPT/HCPCS: 73218; 73221

== ENCOUNTER → 2023-07-24 17:50 | Outpatient (CLI) | payer OTHER, SELFPAY ==
[2023-07-24 18:50] LABS: Influenza A - CEPHEID Flu A NEGATIVE (NEGATIVE); Influenza B - CEPHEID Flu B NEGATIVE (NEGATIVE); Respiratory Syncytial Virus Negative (Negative)
[2023-07-24 19:03] LABS: COVID-19 CEPHEID 4-PLEX PCR Negative (Negative)
== END ==
PROVIDERS: Family Provider Nurse Practitioner; PCP Nurse Practitioner; Visit Provider Physician Assistant
DX: R05.1 Acute cough (principal); J02.9 Acute pharyngitis, unspecified
CPT/HCPCS: 0241U; 87070

== ENCOUNTER → 2023-11-01 13:32 | Outpatient (CLI) | payer OTHER, SELFPAY ==
[2023-11-01 14:53] LABS: Appearance Urine UA CLEAR; Bilirubin Urine UA NEGATIVE (NEGATIVE); Color Urine UA YELLOW; Glucose Urine UA NEGATIVE (Negative); Ketones Urine UA NEGATIVE (NEGATIVE); Leukocyte Esterase Urine UA NEGATIVE (NEGATIVE); Nitrite Urine UA NEGATIVE (Negative); Occult Blood Urine UA TRACE-INTACT (Negative); Protein Urine UA NEGATIVE (Negative); Specific Gravity Urine UA <=1.005 (1.000-1.035); Urobilinogen Urine UA 0.2 E.U./dL (0.2)
[2023-11-01 14:54] LABS: Urine Volume 10mL (spun); pH Urine UA 5.5 (4.5-8.0)
[2023-11-01 14:55] LABS: Bacteria Urine None Seen; Culture Indicated Urine Cult Not Indicated; RBC Urine None Seen (0-5/HPF); Squamous Epithelial Cell Urine None Seen (0-5/HPF); WBC Urine None Seen (0-5/HPF)
== END ==
PROVIDERS: Family Provider Nurse Practitioner; PCP Nurse Practitioner; Visit Provider Physician Assistant
DX: R10.2 Pelvic and perineal pain (principal)
CPT/HCPCS: 81001

== ENCOUNTER → 2023-12-03 07:50 | Outpatient (CLI) | payer OTHER, SELFPAY ==
--- NOTE | 2023-12-03 07:51 | DI.US.S_ITS ---
PROCEDURE: US PELVIC COMPLETE INDICATIONS: pelvic and abdominal pain x 1 mo TECHNIQUE: Real-time scanning was performed of the pelvic organs, with image documentation. Additional endovaginal scanning was necessary due to incomplete visualization of the adnexal and endometrial structures by transabdominal scanning. COMPARISON: None. FINDINGS: Uterus: Uterus is anteverted and normal in size at 7.0 x 6.7 x 3.6 cm. The myometrium is homogeneous. The endometrium measures 10 mm combined thickness. There is no endometrial mass or fluid. Ovaries: The right ovary measures 3.0 x 2.5 x 1.9 cm, with a calculated ovarian volume of 7.5 cc. The left ovary measures 2.7 x 2.2 x 2.0 cm, with a calculated ovarian volume of 6.2 cc. The ovaries have a normal sonographic appearance. Less than 12 follicles can be seen in each ovary. No adnexal masses are seen. Other: No pathologic free abdominal or pelvic fluid. IMPRESSION: Unremarkable ultrasound examination of pelvis. No finding to explain patient's symptoms. We strive to produce accurate, complete, and clear reports of imaging services. To assist us in improving patient care, this report was composed using standard report templates and voice recognition software. Therefore, it may contain abnormal punctuation, insertions and/or omissions. Occasional wrong-word or sound-alike substitutions may occur. Though we review the report and make efforts to correct it, we do recommend that the report be read carefully in proper context to recognize any text inaccuracies. Dictated by: Fercho Rogers M.D. on 12/03/2023 at 9:07 Approved by: Fercho Rogers M.D. on 12/03/2023 at 9:09
--- NOTE | 2023-12-03 07:51 | DI.US.S_ITS ---
PROCEDURE: US ABDOMEN COMPLETE INDICATIONS: pelvic and abdominal pain x 1 mo TECHNIQUE: Real-time scanning was performed of the abdominal and retroperitoneal organs, with image documentation. COMPARISON: None. FINDINGS: Liver: Liver is normal in size. Diffusely increased liver parenchymal echotexture is seen with focal areas of hypoechogenicity near gallbladder fossa measures 1.4 x 1.8 x 0.6 cm in size. Normal hepatopetal flow is seen in main portal vein. Gallbladder: There is no gallstone. No gallbladder wall thickening or pericholecystic fluid. No sonographic Hill's sign. Biliary ducts: Intrahepatic bile ducts are non-dilated. Extrahepatic bile duct caliber measures 4.5 mm. Normal is 6-7 mm or less in diameter, or 10 mm or less post-cholecystectomy. Pancreas: Visualized portions of the pancreas are sonographically normal. Miscellaneous: No free abdominal fluid. IMPRESSION: 1. Hepatic steatosis with area of sparing near gallbladder fossa. Normal hepatopetal flow is seen in main portal vein. 2. Normal appearing gallbladder. No biliary ductal dilatation. 3. Rest of the exam is unremarkable. Dictated by: Fercho Rogers M.D. on 12/03/2023 at 9:05 Approved by: Fercho Rogers M.D. on 12/03/2023 at 9:07
== END ==
LOC: US 07:50
PROVIDERS: Family Provider Nurse Practitioner; PCP Nurse Practitioner; Referring Provider Nurse Practitioner; Visit Provider Nurse Practitioner
DX: R10.2 Pelvic and perineal pain (principal)
CPT/HCPCS: 76700; 76830; 76856

== ENCOUNTER 2024-01-25 10:48 | Day surgery (SDC) | payer OTHER, SELFPAY ==
[2024-01-25] VITALS (7 sets, daily range): BP systolic 95–108; BP diastolic 58–70; PULSE 60–69; RESP 12–17; TEMP 36.5–36.8; O2SAT 100; BMI 25.6
--- NOTE | 2024-01-25 | PATH_ITS ---
[facility] Accession Number: [id number] No. of containers..01 Tissue . 01 Material submitted: . endometrium - ENDOMETRIAL CONTENTS . 01 Diagnosis: ENDOMETRIAL CONTENTS: Products of conception identified. Consultation pending to evaluate for molar gestation; results will be reported as an addendum. LYK 01/30/2024 1421 Local . 01 Electronically signed: . Ariana Allen MD, Pathologist NPI- [id number] . 01 Gross description: . Received in formalin with two identifiers and endometrial contents, are multiple bray spongy to membranous soft tissue fragments admixed with hemorrhagic material aggregating to 4.9 x 2.7 x 2.5 cm. The cut surfaces are bray and spongy with no tissue identified. Rubber Fl[employer] Operator sections are submitted in cassettes A1-A2. ([id number]) /LACY 01/29/2024 0907 Local . 01 Pathologist provided ICD-10: O02.1 . 01 CPT . 924384 Specimen Comment: A courtesy copy of this report has been sent to [facility] Pathology Performed at: [address] [address], [place], [place] [id number] MD Leo Andrea MD Phone: [phone]
--- NOTE | 2024-01-25 11:38 | PM.PREOP ---
Pre-operative Note Interval Note History & Physical reviewed/Exam performed by Physician: Yes Changes to H&P: No H&P completed within 30 days and has changed as indicated here:: 01/21/24 pt reports interval increase in vaginal bleeding with passage of clot ASA Class (for procedural sedation): II
[2024-01-25] MEDS: ACETAMINOPHEN 325 MG TABLET 975 MG PO (11:43)
[2024-01-25] MEDS: LACTATED RINGERS 1,000 ML 42 ML IV (11:44)
--- NOTE | 2024-01-25 11:52 | SUR.OPER ---
Lithotomy on padded OR bed, head on pillow, arms secured on padded arm boards at <90 degrees abduction. Legs secured in padded yellow fins stirrups.
[2024-01-25] MEDS: SILVER NITRATE STICK 2 EACH TOP (12:25)
--- NOTE | 2024-01-25 12:57 | PM.OP.1 ---
Operative Date/Time/Diagnoses Date of procedure: 01/25/24 Time of procedure: 12:15 Pre-op diagnosis: incomplete SAB Post-op diagnosis: same Procedure & Clinicians Procedure: suction dilation and curettage, removal of products of conception Same procedure as scheduled: Yes Indications: incomplete SAB at 8-10wga Surgeon: Radha Sheikh Click Yes if Unassisted: Yes Anesthesia Type: General Operative Notes Findings: cervix dilated to 2cm, POC at external os Closure Type: not applicable Specimen(s): other (endometrial contents ) Estimated Blood Loss (mL): 25 Procedure in detail: Pt was taken to the operating room, transferred to OR table and anesthesia was induced with placement of LMA.? Pt had her legs placed in Delmar stirrups and exam under anesthesia was performed.? The patient was prepped and draped in a sterile fashion.? A time out was performed.? The bladder was emptied via straight catheter in sterile fashion.? A sterile speculum was inserted into the vagina.? The cervix was visualized and grasped anteriorly using a single tooth tenaculum.? The products of conception visualized at the external os were grasped using polyp forceps and removed, passed off the field for permanent study. The uterus sounded to 9 cm, The 8mm curved suction curette was inserted into the uterus and the uterine contents were evacuated. The uterus was sharply curetted until a gritty texture was noted throughout, followed by additional single pass with suction curette.? Hemostasis was noted.? The tenaculum was removed and hemostasis was noted at insertion sites following brief application of silver nitrate.? Speculum removed.? Hemostasis was again confirmed to be excellent.? The patient then had her legs taken out of stirrups.? The patient tolerated the procedure well and without difficulty.? The patient was awakened from anesthesia and taken to PACU in stable condition. Complications: none Post-operative Condition: stable Disposition: PACU Plan for aftercare: dc to home
== END 2024-01-25 13:16 | disposition home or self-care (01) ==
PROVIDERS: PCP Nurse Practitioner; Referring Provider Obstetrics & Gynecology; Visit Provider Obstetrics & Gynecology
PROC: (CPT 58120; principal; 2024-01-25 12:00)
DX: O02.1 Missed abortion (principal); Z3A.10 10 weeks gestation of pregnancy
CPT/HCPCS: 59820; J1100; J1885; J2250; J2405; J2704

== ENCOUNTER → 2024-04-30 09:12 | Outpatient (CLI) | payer OTHER, SELFPAY ==
[2024-04-30 10:36] LABS: Hemoglobin A1C% w Est Avg Glu 5.4 % (4.0-6.0)
[2024-04-30 10:53] LABS: Alanine Aminotransferase 25 IU/L (<35); Albumin 4.3 g/dL (3.5-5.0); Albumin Globulin Ratio 1.3 (1.0-2.8); Alkaline Phosphatase 50 U/L (38-126); Aspartate Aminotransferase 30 IU/L (14-36); Bilirubin Total 0.5 mg/dL (0.2-1.3); Blood Urea Nitrogen 8 mg/dL (7-17); Calcium 8.8 mg/dL (8.4-10.2); Carbon Dioxide 23 mmol/L (22-32); Chloride 104 mmol/L (98-107); Estimated Glomerular Filt Rate > 60 mL/min (>60); Globulin 3.3 g/dL (1.7-4.1); Glucose 91 mg/dL (70-100); HEMOLYSIS < 15 (0-50); Potassium 3.7 mmol/L (3.4-5.1); Sodium 135 mmol/L (137-145); Total Protein 7.6 g/dL (6.3-8.2)
[2024-05-01 08:36] LABS: Insulin Level Total 14.4 uIU/mL (2.6-24.9)
== END ==
PROVIDERS: PCP Family Medicine; Referring Provider Obstetrics & Gynecology; Visit Provider Family Medicine
DX: R73.9 Hyperglycemia, unspecified (principal)
CPT/HCPCS: 36415; 80053; 83036; 83525

== ENCOUNTER → 2024-09-18 12:01 | Outpatient (CLI) | payer OTHER, SELFPAY | PROVIDERS: PCP Family Medicine; Referring Provider Obstetrics & Gynecology; Visit Provider Obstetrics & Gynecology | DX: N91.2 Amenorrhea, unspecified (principal); Z87.59 Personal history of other complications of pregnancy, childbirth and the puerperium | CPT/HCPCS: 36415; 84702 ==

== ENCOUNTER 2024-09-18 17:45 | Emergency (ER) | payer OTHER, SELFPAY ==
[2024-09-18] VITALS (11 sets, daily range): BP systolic 109–152; BP diastolic 68–86; PULSE 76–91; RESP 14–18; TEMP 36.3; O2SAT 96–100; BMI 25.6
--- NOTE | 2024-09-18 17:58 | DI.US.S_ITS ---
PROCEDURE: US OB <= 14 WEEKS FETUS INDICATIONS: right lower abd pain,+ OUTSIDE/PRIOR DATING DATA: Last menstrual period (LMP): August 21, 2024 LMP-based estimated date of delivery (DAYAN): May 28, 2025. TECHNIQUE: Real-time scanning was performed of the fetus and maternal pelvic organs, with image documentation. Endovaginal scanning was also performed to better visualize the fetus and maternal ovaries. COMPARISON: [facility], US, US OB <= 14 WEEKS FETUS, 01/21/2024, 9:02. FINDINGS: Embryo: Intrauterine gestation not visualized. No gestational sac. No pole. Heart rate: No cardiac activity detected. Maternal organs: Ovaries demonstrate possible 1.9 cm right corpus luteal cyst. The left ovary is not visualized on this exam. Trace amount of pelvic in the posterior cul-de-sac. No pathologic pelvic free fluid. No evidence for suspicious ovarian/adnexal mass lesions. IMPRESSION: No sonographic evidence for intrauterine gestation. In the setting of a positive test, findings may represent an early intrauterine gestation, ectopic , versus possible miscarriage. Recommend continued clinical surveillance with serial quantitative HCG measurements to document expected rate of change and short interval follow-up ultrasound as needed to document progression. We strive to produce accurate, complete, and clear reports of imaging services. To assist us in improving patient care, this report was composed using standard report templates and voice recognition software. Therefore, it may contain abnormal punctuation, insertions and/or omissions. Occasional wrong-word or sound-alike substitutions may occur. Though we review the report and make efforts to correct it, we do recommend that the report be read carefully in proper context to recognize any text inaccuracies. Dictated by: Todd Puckett M.D. on 09/18/2024 at 21:06 Approved by: Todd Puckett M.D. on 09/18/2024 at 21:13
[2024-09-18 18:20] LABS: Add Manual Diff / Slide Review NO; Basophils Absolute Auto 100 /uL (0-100); Basophils Percent Auto 0.8 % (0-2); Eosinophils Absolute Auto 100 /uL (0-450); Eosinophils Percent Auto 0.8 % (2-4); Hematocrit 43.2 % (36-46); Hemoglobin 14.2 g/dL (12.0-16.0); Lymphocytes Absolute Auto 1800 /uL (1100-4500); Lymphocytes Percent Auto 18.5 % (25-40); Mean Corpuscular HGB Conc 32.8 % (30-36); Mean Corpuscular Hemoglobin 28.2 PG (26-34); Mean Corpuscular Volume 85.9 fL (80-100); Monocytes Absolute Auto 600 /uL (0-900); Monocytes Percent Auto 6.1 % (3-14); Neutrophils Absolute Auto 7200 /uL (1500-7000); Neutrophils Percent Auto 73.8 % (50-75); Platelet Count 356 X10^3/uL (150-400); Red Blood Cell Count 5.03 X10^6/uL (4.0-5.2); Red Cell Distribution Width 14.4 % (11.6-14.8); White Blood Cell Count 9.7 X10^3/uL (4.5-11.0)
[2024-09-18 18:31] LABS: Alanine Aminotransferase 21 IU/L (<35); Albumin Globulin Ratio 1.3 (1.0-2.8); Alkaline Phosphatase 52 U/L (38-126); Aspartate Aminotransferase 24 IU/L (14-36); BUN Creatinine Ratio 12.5 (6-22); Bilirubin Total 0.5 mg/dL (0.2-1.3); Blood Urea Nitrogen 7 mg/dL (7-17); Calcium 9.3 mg/dL (8.4-10.2); Carbon Dioxide 22 mmol/L (22-32); Chloride 104 mmol/L (98-107); Estimated Glomerular Filt Rate > 60 mL/min (>60); Globulin 3.8 g/dL (1.7-4.1); Glucose 102 mg/dL (70-100); HEMOLYSIS < 15 (0-50); Potassium 3.5 mmol/L (3.4-5.1); Sodium 139 mmol/L (137-145); Total Protein 8.8 g/dL (6.3-8.2)
[2024-09-18 18:48] LABS: HCG Quantitative /Beta subunit 343.16 mIU/mL
[2024-09-18 19:02] LABS: Bacteria Urine Occasional (0-1); RBC Urine 0-1/HPF (0-5/HPF); Squamous Epithelial Cell Urine 0-1 /HPF (0-5/HPF); Urine Volume 10mL (spun); WBC Urine 0-1/HPF (0-5/HPF)
[2024-09-18 19:03] LABS: Culture Indicated Urine Cult Not Indicated
--- NOTE | 2024-09-18 22:21 | ED.ABDPAIN ---
HPI - Abdominal Pain General Chief Complaint: Abdominal Pain Stated Complaint: Pelvic pain 1st trimester, OB RN sent in. Time Seen by Provider: 09/18/24 20:57 Source: patient Mode of arrival: Ambulatory History of Present Illness HPI narrative: 39-year-old female SAB 1 with positive test at home trying to get with her , last menstrual period 08/21/2024, awaiting 1st visit, having 2 weeks duration of right-sided abdominal pain, called OB nursing and had hCG drawn earlier today and then was planning to get another 1 in 48 hours but because of the pain was referred here for imaging and further evaluation. No vaginal bleeding. No dizziness. No increasing abdominal discomfort. She has not seen any care provider thus far. 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 Rectal bleeding Hematuria Urinary frequency Family history of MS (multiple sclerosis) Left axillary pain Insomnia History of abnormal cervical Papanicolaou smear Lower back pain Abnormal Pap smear of cervix (~2013) Surgical History (Updated 01/24/24 @ 13:30 by Gina Shepherd RN) History of urologic surgery (12/29/22) [place] teeth extracted (~2018) Family History (Updated 12/27/23 @ 15:46 by Jane Douglas RN) Grandfather Tuberculosis Grandfather Lung cancer Smoker Grandmother Stomach cancer Father Lymphoma Mother Hyperthyroidism Hypertension Brother Hyperthyroidism Social History marital status: number of children: 1 household members: spouse and children lives independently: Yes caregiver/support person: Yes housing: house pets and animals: No education level: college 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) current occupational exposures/hazards: No special marta needs: No travel history: over 6 months ago seatbelt use: always water heater temp set < 120 deg: Yes working smoke detector in home: Yes fire extinguisher in home: Yes carbon monox detector in home: Yes firearms in home: No do you feel safe at home: Yes Smoking Status: Former smoker Tobacco: How many years used: 6 second hand exposure: Yes (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 HEAD: Atraumatic. Normocephalic. EYES: Pupils equal round and reactive. Extraocular motions intact. No scleral icterus. No injection or drainage. ENT: Nose without bleeding, purulent drainage. Throat without erythema, tonsillar hypertrophy or exudate. Airway patent. NECK: Trachea midline. Non tender CARDIOVASCULAR: Regular rate and rhythm without murmurs, gallops, or rubs. RESPIRATORY: Clear to auscultation. Breath sounds equal bilaterally. No wheezes, rales, or rhonchi. GASTROINTESTINAL: Abdomen soft, non-tender, nondistended. EXTREMITIES: No edema or joint tenderness. BACK: Nontender without deformity or crepitance. No flank tenderness. NEURO: AOx3. Motor functions grossly nonfocal SKIN: No rash or erythema of visible areas Initial Vital Signs Initial Vital Signs: Vital Signs Temperature 97.4 F L 09/18/24 17:55 Pulse Rate 91 H 09/18/24 17:55 Respiratory Rate 18 09/18/24 17:55 Blood Pressure 152/76 H 09/18/24 17:55 Pulse Oximetry 96 09/18/24 17:55 Oxygen Delivery Method Room Air 09/18/24 17:55 Course Orders Ordered: ED Orders 09/18/24 17:58 US OB <= 14 weeks fetus Stat 09/18/24 18:00 Urine Microscopic Stat 09/18/24 18:10 Complete Blood Count AUTO DIFF Stat Comprehensive Metabolic Panel Stat HCG Quantitative /Beta subunit Stat Type and Screen Stat Vital Signs Vital signs: Vital Signs - 8 hr 09/18/24 19:47 09/18/24 19:47 09/18/24 20:00 Pulse Rate 82 79 Respiratory Rate 16 Blood Pressure 130/77 Pulse Oximetry 100 98 Oxygen Delivery Method Room Air 09/18/24 20:30 09/18/24 21:00 09/18/24 21:30 Pulse Rate 76 79 78 Respiratory Rate 14 Blood Pressure 109/68 Pulse Oximetry 100 100 100 Oxygen Delivery Method Room Air 09/18/24 21:41 09/18/24 21:41 09/18/24 22:00 Pulse Rate 87 Respiratory Rate 14 Blood Pressure 109/68 122/74 Pulse Oximetry 100 Oxygen Delivery Method Room Air 09/18/24 22:00 09/18/24 22:30 09/18/24 23:00 Pulse Rate 82 89 Respiratory Rate 14 16 Blood Pressure 122/86 Pulse Oximetry 100 100 Oxygen Delivery Method Room Air Room Air 09/18/24 23:00 09/18/24 23:30 09/18/24 23:30 Pulse Rate 80 82 Respiratory Rate 14 14 Blood Pressure 136/69 Pulse Oximetry 99 97 Oxygen Delivery Method Room Air Room Air MDM - Abdominal Pain Lab Data Attestation: I reviewed the patient's lab results. Lab results narrative: White blood cell count 9700, hemoglobin 14.2, platelets adequate. Basic metabolic panel unremarkable. Liver functions and lipase normal. HCG 343 noted. Blood type A positive. Urinalysis negative. 09/18/24 18:10 09/18/24 18:10 Labs: Lab Results 09/18/24 09/18/24 Range/Units 18:00 18:10 WBC 9.7 (4.5-11.0) X10^3/uL RBC 5.03 (4.0-5.2) X10^6/uL Hgb 14.2 (12.0-16.0) g/dL Hct 43.2 (36-46) % MCV 85.9 (80-100) fL MCH 28.2 (26-34) PG MCHC 32.8 (30-36) % RDW 14.4 (11.6-14.8) % Plt Count 356 (150-400) X10^3/uL Neut % (Auto) 73.8 (50-75) % Lymph % (Auto) 18.5 L (25-40) % Thomas % (Auto) 6.1 (3-14) % Eos % (Auto) 0.8 L (2-4) % Baso % (Auto) 0.8 (0-2) % Neut # (Auto) 7200 H (9762-1797) /uL Lymph # (Auto) 1800 (0494-8764) /uL Thomas # (Auto) 600 (0-900) /uL Eos # (Auto) 100 (0-450) /uL Baso # (Auto) 100 (0-100) /uL Sodium 139 (137-145) mmol/L Potassium 3.5 (3.4-5.1) mmol/L Chloride 104 (98-107) mmol/L Carbon Dioxide 22 (22-32) mmol/L BUN 7 (7-17) mg/dL Creatinine 0.56 (0.52-1.04) mg/dL Estimated GFR > 60 (>60) mL/min BUN/Creatinine Ratio 12.5 (6-22) Glucose 102 H (70-100) mg/dL Calcium 9.3 (8.4-10.2) mg/dL Total Bilirubin 0.5 (0.2-1.3) mg/dL AST 24 (14-36) IU/L ALT 21 (<35) IU/L Alkaline Phosphatase 52 (38-126) U/L Total Protein 8.8 H (6.3-8.2) g/dL Albumin 5.0 (3.5-5.0) g/dL Globulin 3.8 (1.7-4.1) g/dL Albumin/Globulin Ratio 1.3 (1.0-2.8) HCG, Quant 343.16 mIU/mL Urine RBC 0-1/hpf (0-5/HPF) Urine WBC 0-1/hpf (0-5/HPF) Ur Squamous Epith Cells 0-1 /hpf (0-5/HPF) Urine Bacteria Occasional (0-1) (None) Ur Culture Indicated? Cult not indicated Vol Urine Centrifuged 10ml (spun) Blood Type A Positive Antibody Screen Negative Point of care testing: Urine Dip Bedside Urine Glucose Negative Bedside Urine Bilirubin - Negative Bedside Urine Ketone - Negative Urine Specific [place] 1.005 Bedside Urine Occult Blood ++ Bedside Urine pH 6.5 Bedside Urine Protein - Negative Bedside Urine Urobilinogen - Negative Bedside Urine Nitrite - Negative Bedside Urine Leukocytes - Negative Esterase Imaging Data Pelvic ultrasound: Radiologist's Impression: [address] [address] Ultrasound Report Signed Patient: Lon Swan MR#: [id number] : 1985 Acct:[id number] Age/Sex: 39 / F Date of Service: 09/18/24 Loc: ED Accession Number: [id number] Procedure: US OB <= 14 weeks fetus Ordering Provider: Augustine Emery MD PROCEDURE: US OB <= 14 WEEKS FETUS INDICATIONS: right lower abd pain,+ OUTSIDE/PRIOR DATING DATA: Last menstrual period (LMP): August 21, 2024 LMP-based estimated date of delivery (DAYAN): May 28, 2025. TECHNIQUE: Real-time scanning was performed of the fetus and maternal pelvic organs, with image documentation. Endovaginal scanning was also performed to better visualize the fetus and maternal ovaries. COMPARISON: Mobile Location, IP [facility], [place], US OB <= 14 WEEKS FETUS, 01/21/2024, 9:02. FINDINGS: Embryo: Intrauterine gestation not visualized. No gestational sac. No pole. Heart rate: No cardiac activity detected. Maternal organs: Ovaries demonstrate possible 1.9 cm right corpus luteal cyst. The left ovary is not visualized on this exam. Trace amount of pelvic in the posterior cul-de-sac. No pathologic pelvic free fluid. No evidence for suspicious ovarian/adnexal mass lesions. IMPRESSION: No sonographic evidence for intrauterine gestation. In the setting of a positive test, findings may represent an early intrauterine gestation, ectopic , versus possible miscarriage. Recommend continued clinical surveillance with serial quantitative HCG measurements to document expected rate of change and short interval follow-up ultrasound as needed to document progression. We strive to produce accurate, complete, and clear reports of imaging services. To assist us in improving patient care, this report was composed using standard report templates and voice recognition software. Therefore, it may contain abnormal punctuation, insertions and/or omissions. Occasional wrong-word or sound-alike substitutions may occur. Though we review the report and make efforts to correct it, we do recommend that the report be read carefully in proper context to recognize any text inaccuracies. Dictated by: Todd Puckett M.D. on 09/18/2024 at 21:06 Approved by: Todd Puckett M.D. on 09/18/2024 at 21:13 [facility] Narrative Medical decision making narrative: 39-year-old G3P P1 SAB 1 with early by home test, LMP last month, having 2 weeks' duration right lower quadrant pain, not really tender on that side, no external vaginal bleeding. No fevers or chills. HCG here was measurable at 3:43 a.m., blood type A positive noted. Ultrasound pelvis ordered from triage. Pelvic ultrasound shows no sonographic evidence intrauterine gestation, no adnexal mass or free fluid or cystic changes. See radiology report. Patient advised that she could have ectopic but this might just be a normal early in having some other reason for right-sided discomfort. Abdominal tenderness is not significant, doubt need for CT abdomen pelvis or other advanced imaging for now, patient is agreeable. We will coordinate follow up with on-call gynecology. Case discussed with Dr. Durant, agrees with need for interval follow up hCG in 48 hours, can be done in their clinic. Contact information provided for follow up. Return precautions discussed. Home with family. Discharge Plan Departure Patient Disposition: Home Clinical Impression: Positive test, Abdominal pain Activity Restrictions/Additional Instructions: Ms Swan, Recent reported home test, ongoing 2 weeks duration right-sided abdominal pain, serum hormone level drawn through OB nursing system, scheduled for repeat draw in 2 days through their service, no vaginal bleeding, normal vitals, unremarkable laboratory serum studies. test 343 noted was low but measurable. Ultrasound pelvis today did not show any in the uterus nor any abnormalities of the tube, no free fluid to suggest a bleeding. Advised repeat blood draw on Sunday as planned to see if the blood count is rising. No significant tenderness to warrant CT abdomen and pelvis imaging at this time. It is possible that you have unrelated right-sided abdominal discomfort to your and that this maybe an early that will proceed to normal. It is possible that you have recent miscarriage and passage of a miscarriage, or absorption of a recent miscarriage. It is also possible that you have an early ectopic in the right tube that is not visualized yet. An ectopic can grow and cause bleeding into the pelvis and be a dangerous condition. For now repeat the blood test on Sunday to see if the hormone level is increasing. Case was discussed with on-call family physician Dr. Durant, who offered to see you in follow up early next week. Return earlier to this/nearest emergency department for any change worsening symptoms or any concerns prior. Thank you for allowing our team to evaluate you today. Prescriptions: No Action vit-ferrous sulfat-FA 27 mg iron- 0.8 mg tablet PO fluoxetine 10 mg tablet 10 mg PO DAILY Qty: 90 1RF omega-3 fatty acids [Fish Oil Concentrate] 1,000 mg capsule 1,000 mg PO DAILY Referrals: Lynne Castanon DO [Primary Care Provider] - Stand Alone Forms: Patient Portal/API/Survey
--- NOTE | 2024-09-18 22:49 | PC.NURSE ---
Dr. Emery in to examine patient at this time.
--- NOTE | 2024-09-18 23:34 | PC.NURSE ---
Pt ambulatory to restroom without difficulty or assistance
== END 2024-09-18 23:45 | disposition home or self-care (01) ==
PROVIDERS: Student in an Organized Health Care Education/Training Program; Emergency Provider Emergency Medicine; PCP Family Medicine
DX: O26.91 Pregnancy related conditions, unspecified, first trimester (principal); R10.2 Pelvic and perineal pain; Z3A.01 Less than 8 weeks gestation of pregnancy
CPT/HCPCS: 36415; 76801; 76817; 80053; 81003; 81015; 84702; 85025; 86850; 86900; 86901; 99282; 99284

== ENCOUNTER → 2024-09-20 12:21 | Outpatient (CLI) | payer OTHER, SELFPAY | LOC: LAB 12:22 | PROVIDERS: PCP Family Medicine; Referring Provider Obstetrics & Gynecology; Visit Provider Obstetrics & Gynecology | DX: N91.2 Amenorrhea, unspecified (principal) | CPT/HCPCS: 36415; 84702 ==

== ENCOUNTER → 2024-10-15 12:00 | Outpatient (CLI) | payer OTHER, SELFPAY ==
[2024-10-15 13:12] LABS: Hemoglobin A1C% w Est Avg Glu 5.2 % (4.0-6.0)
[2024-10-15 13:40] LABS: Free T4, Direct Thyroxine 0.76 ng/dL (0.78-2.19)
[2024-10-15 13:53] LABS: Thyroid Stimulating Hormone 3.29 uIU/mL (0.47-4.68)
== END ==
PROVIDERS: PCP Family Medicine; Referring Provider Obstetrics & Gynecology; Visit Provider Obstetrics & Gynecology
DX: Z34.80 Encounter for supervision of other normal pregnancy, unspecified trimester (principal)
CPT/HCPCS: 36415; 83036; 84439; 84443

== ENCOUNTER → 2024-11-19 09:39 | Outpatient (CLI) | payer OTHER, SELFPAY ==
[2024-11-19 10:14] LABS: Add Manual Diff / Slide Review NO; Basophils Absolute Auto 0 /uL (0-100); Basophils Percent Auto 0.5 % (0-2); Eosinophils Absolute Auto 100 /uL (0-450); Eosinophils Percent Auto 1.5 % (2-4); Hematocrit 38.1 % (36-46); Hemoglobin 12.6 g/dL (12.0-16.0); Lymphocytes Absolute Auto 1300 /uL (1100-4500); Lymphocytes Percent Auto 14.7 % (25-40); Mean Corpuscular HGB Conc 33.2 % (30-36); Mean Corpuscular Hemoglobin 28.8 PG (26-34); Mean Corpuscular Volume 86.8 fL (80-100); Monocytes Absolute Auto 500 /uL (0-900); Monocytes Percent Auto 6.1 % (3-14); Neutrophils Absolute Auto 6800 /uL (1500-7000); Neutrophils Percent Auto 77.2 % (50-75); Platelet Count 292 X10^3/uL (150-400); Red Blood Cell Count 4.39 X10^6/uL (4.0-5.2); Red Cell Distribution Width 14.2 % (11.6-14.8); White Blood Cell Count 8.8 X10^3/uL (4.5-11.0)
[2024-11-19 10:30] LABS: Alanine Aminotransferase 20 IU/L (<35); Albumin 4.1 g/dL (3.5-5.0); Albumin Globulin Ratio 1.5 (1.0-2.8); Alkaline Phosphatase 37 U/L (38-126); Aspartate Aminotransferase 22 IU/L (14-36); BUN Creatinine Ratio 23.8 (6-22); Bilirubin Total 0.4 mg/dL (0.2-1.3); Blood Urea Nitrogen 10 mg/dL (7-17); Calcium 9.2 mg/dL (8.4-10.2); Carbon Dioxide 20 mmol/L (22-32); Chloride 106 mmol/L (98-107); Estimated Glomerular Filt Rate > 60 mL/min (>60); Globulin 2.8 g/dL (1.7-4.1); Glucose 106 mg/dL (70-99); HEMOLYSIS < 15 (0-50); Potassium 3.8 mmol/L (3.4-5.1); Sodium 135 mmol/L (137-145); Total Protein 6.9 g/dL (6.3-8.2)
[2024-11-19 10:47] LABS: Free T4, Direct Thyroxine 0.92 ng/dL (0.78-2.19)
[2024-11-19 10:52] LABS: Natera Collection Specimen Collected
[2024-11-19 11:01] LABS: Thyroid Stimulating Hormone 0.325 uIU/mL (0.47-4.68)
[2024-11-19 11:02] LABS: Hepatitis B Surface Antigen NEGATIVE s/c (NEGATIVE); Rubella Antibody IgG 55.9 IU/mL (>15)
[2024-11-19 11:19] LABS: HIV 1 & 2 Ab/Ag 4th Gen Combo NEGATIVE (NEGATIVE); Hep C Virus Ab w/Reflex Quant NEGATIVE s/c (NEGATIVE)
[2024-11-20 06:05] LABS: RPR Screen Non Reactive (Non Reactive)
[2024-11-20 09:09] LABS: Varicella IgG Antibody Reactive (Non Reactive)
== END ==
LOC: LAB 09:40
PROVIDERS: Obstetrics & Gynecology; PCP Family Medicine; Referring Provider Obstetrics & Gynecology; Visit Provider Obstetrics & Gynecology
DX: O99.280 Endocrine, nutritional and metabolic diseases complicating pregnancy, unspecified trimester (principal); K76.0 Fatty (change of) liver, not elsewhere classified; Z3A.12 12 weeks gestation of pregnancy; E03.9 Hypothyroidism, unspecified
CPT/HCPCS: 36415; 80053; 80055; 84439; 84443; 86787; 86803; 86850; 86900; 86901; 87086; 87389

== ENCOUNTER → 2024-12-17 09:25 | Outpatient (CLI) | payer OTHER, SELFPAY ==
[2024-12-19 20:09] LABS: AFP Value 37.3 ng/mL (.); Gest Age on Col Date 16.9 weeks (.); Insulin Dep Diabetes No (.); OSBR Risk 1IN 10000 (.); Results Report (.); Test Results *Screen Negative* (.)
== END ==
PROVIDERS: PCP Family Medicine; Referring Provider Obstetrics & Gynecology; Visit Provider Obstetrics & Gynecology
DX: Z34.82 Encounter for supervision of other normal pregnancy, second trimester (principal); Z3A.16 16 weeks gestation of pregnancy
CPT/HCPCS: 36415; 82105

== ENCOUNTER → 2025-01-16 13:35 | Outpatient (CLI) | payer OTHER, SELFPAY ==
--- NOTE | 2025-01-16 13:36 | DI.US.S_ITS ---
PROCEDURE: US OB >= 14 WEEKS FETUS INDICATIONS: 20 wk anatomy OUTSIDE/PRIOR DATING DATA: The calculations are made using the DAYAN of 05/28/2025. TECHNIQUE: Real-time scanning was performed of the fetus, with image documentation and biometric measurements. Endovaginal scanning: Not performed COMPARISON: [facility], , US OB <= 14 WEEKS FETUS, 10/15/2024, 11:48. FINDINGS: General: A single living intrauterine gestation is present. Presentation: Transverse. Placenta: Placental position is anterior , without previa. Amniotic fluid index: 14.1 cm, normal range is 5-24 cm. Single deepest vertical pocket is 4.1 cm. heart rate: 143 beats per minute. Maternal cervical canal: 3.9 cm long. Normal lower limit is 2.5 cm. biometrics: Biparietal diameter: 4.9 cm, 20 weeks 6 days Head circumference: 18.0 cm, 20 weeks 3 days Abdominal circumference: 18.0 cm, 22 weeks 6 days Femur length: 3.5 cm, 21 weeks 0 days Clinically estimated gestational age: 21 weeks 1 day Composite gestational age from present scan: 21 weeks 2 days Estimated weight and percentile: 453 g, 8th percentile Anatomic survey: Neuro: Ventricles are non-dilated at less than 10 mm. Cisterna magna is normal at 3-11 mm. Cerebellum is normal in size and morphology. Nuchal skin fold: Normal at less than 6 mm between 14-21 weeks gestational age. Face: Nose and lips, facial profile are normal. Spine: No evidence for spina bifida. Heart: 4-chambered heart is present, outflow tracts are not well seen. Diaphragm: Diaphragm is intact. Stomach: Left-sided stomach is present. Kidneys: No hydronephrosis. Normal is less than 5 mm in 2nd trimester, less than 7 mm in 3rd trimester. Cord: 3-vessel cord has orthotopic insertion. Bladder: Normal in size. Extremities: All 4 extremities identified. IMPRESSION: 1. Single live intrauterine consistent with 21 weeks and 2 days. 2. Cardiac outflow tracts are not well seen, recommend short-term follow-up ultrasound. 3. Otherwise, normal anatomic survey. We strive to produce accurate, complete, and clear reports of imaging services. To assist us in improving patient care, this report was composed using standard report templates and voice recognition software. Therefore, it may contain abnormal punctuation, insertions and/or omissions. Occasional wrong-word or sound-alike substitutions may occur. Though we review the report and make efforts to correct it, we do recommend that the report be read carefully in proper context to recognize any text inaccuracies. Dictated by: John Kelly M.D. on 01/16/2025 at 16:15 Approved by: John Kelly M.D. on 01/16/2025 at 16:18
== END ==
PROVIDERS: PCP Family Medicine; Referring Provider Obstetrics & Gynecology; Visit Provider Obstetrics & Gynecology
DX: Z34.82 Encounter for supervision of other normal pregnancy, second trimester (principal); Z3A.21 21 weeks gestation of pregnancy
CPT/HCPCS: 76811

== ENCOUNTER → 2025-01-28 12:18 | Outpatient (CLI) | payer OTHER, SELFPAY ==
[2025-01-28 14:32] LABS: Free T3, Triiodothyronine Free 3.23 pg/mL (2.77-5.27)
[2025-01-28 14:46] LABS: TSH w/ Reflex to FT4 1.05 uIU/mL (0.47-4.68)
== END ==
PROVIDERS: PCP Family Medicine; Referring Provider Family Medicine; Visit Provider Family Medicine
DX: O99.280 Endocrine, nutritional and metabolic diseases complicating pregnancy, unspecified trimester (principal); E03.9 Hypothyroidism, unspecified
CPT/HCPCS: 36415; 84443; 84481

== ENCOUNTER → 2025-04-08 07:14 | Outpatient (CLI) | payer OTHER, SELFPAY ==
--- NOTE | 2025-04-08 07:15 | DI.US.S_ITS ---
PROCEDURE: US OB FOLLOW UP INDICATIONS: incomplete anatomy scan OUTSIDE/PRIOR DATING DATA: The calculations are made using the working DAYAN of 05/28/25. TECHNIQUE: Real-time scanning was performed of the fetus, with image documentation and biometric measurements. Endovaginal scanning: No COMPARISON: None. FINDINGS: General: A single living intrauterine gestation is present. Presentation: Vertex. Placenta: Placental position is anterior , without previa Amniotic fluid index: 14.7 cm, normal range is 5-24 cm. Single deepest vertical pocket is 6.4 cm. heart rate: 128 beats per minute. Maternal cervical canal: Not well seen biometrics: Biparietal diameter: 8.3 cm, 33 weeks two days Head circumference: 30.8 cm, 34 weeks two days Abdominal circumference: 31.0 cm, 35 weeks 0 days Femur length: 6.1 cm, 31 weeks three days Clinically estimated gestational age: 32 weeks six days Composite gestational age from present scan: 33 weeks four days Estimated weight and percentile: 2273 g, 70th percentile Other: cardiac structures are not well seen due to suboptimal positioning and late gestational age. IMPRESSION: Single living intrauterine with estimated weight at the 70th percentile. Composite gestational age is five days ahead of the expected gestational age. Mildly asymmetric biometry. Uncertain clinical significance at this late gestational age. We strive to produce accurate, complete, and clear reports of imaging services. To assist us in improving patient care, this report was composed using standard report templates and voice recognition software. Therefore, it may contain abnormal punctuation, insertions and/or omissions. Occasional wrong-word or sound-alike substitutions may occur. Though we review the report and make efforts to correct it, we do recommend that the report be read carefully in proper context to recognize any text inaccuracies. Dictated by: Nati Phillips M.D. on 04/08/2025 at 12:58 Approved by: Nati Phillips M.D. on 04/08/2025 at 13:03
== END ==
LOC: US 07:15
PROVIDERS: PCP Family Medicine; Referring Provider Family Medicine; Visit Provider Obstetrics & Gynecology
DX: O26.843 Uterine size-date discrepancy, third trimester (principal); Z3A.33 33 weeks gestation of pregnancy
CPT/HCPCS: 76816

== ENCOUNTER 2025-04-29 10:02 | Outpatient (CLI) | payer OTHER, SELFPAY ==
--- NOTE | 2025-04-29 11:43 | PM.OBTRLD ---
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 Rectal bleeding Hematuria Family history of MS (multiple sclerosis) Left axillary pain History of abnormal cervical Papanicolaou smear Lower back pain Abnormal Pap smear of cervix (~2013) Surgical History (Updated 09/24/24 @ 14:26 by Jane Douglas, RN) H/O LEEP (~2013) History of urologic surgery (12/29/22) [place] teeth extracted (~2018) Family History (Updated 09/24/24 @ 14:31 by Jane Douglas RN) Grandfather Tuberculosis Grandfather Lung cancer Smoker Grandmother Stomach cancer Father Lymphoma Mother Hyperthyroidism Hypertension Brother Hyperthyroidism Family/Other Liver cancer Family/Other Breast cancer Uncle Stomach cancer Social History marital status: number of children: 1 household members: spouse, family (mom) and children lives independently: Yes caregiver/support person: Yes housing: house pets and animals: No education level: college 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, 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) current occupational exposures/hazards: No special marta needs: No travel history: over 6 months ago seatbelt use: always water heater temp set < 120 deg: Yes working smoke detector in home: Yes fire extinguisher in home: Yes carbon monox detector in home: Yes firearms in home: No do you feel safe at home: Yes Tobacco: How many years used: 6 second hand exposure: Yes ([employer] client vapes and smokes) alcohol intake: former (occasional glass wine when not ) substance use type: does not use during the past year weight has: remained stable well-balanced diet: daily or most days daily servings fruits/ve or more times/day (more fruit than vegetables) caffeine: Yes (Occasional coffee, green tea after dinner as digestive) Type(s) of exercise: walking Evaluation Evaluation Baseline heart rate: 145 Variability: Moderate (6-25) monitor accelerations: Present Monitor Decelerations: Absent Uterine Contraction Intensity: Mild Category of Tracing: Reactive Status: Category l Diagnosis, Plan/Disposition Plan/Disposition Plan: reactive NST continue weekly testing f/u as scheduled OB Disposition: home
[2025-04-29 15:14] LABS: Strep Grp B PCR PRESUMPTIVE NEG GBS
== END 2025-04-29 11:45 | disposition home or self-care (01) ==
LOC: LABOR 10:17 → OB 12:08
PROVIDERS: PCP Family Medicine; Referring Provider Obstetrics & Gynecology; Visit Provider Obstetrics & Gynecology
DX: O09.523 Supervision of elderly multigravida, third trimester (principal); Z3A.35 35 weeks gestation of pregnancy
CPT/HCPCS: 59025; 87081; 87653; G0378; G0379

== ENCOUNTER → 2025-04-30 08:13 | Outpatient (CLI) | payer OTHER, SELFPAY ==
[2025-04-30 10:02] LABS: Glucose Fasting Gestational 83 mg/dL (76-95)
[2025-04-30 10:30] LABS: Glucose 1 Hour Gest 212 mg/dL (76-180)
[2025-04-30 11:37] LABS: Glucose Tol Interp,Gestational INTERPRETATION
[2025-04-30 12:15] LABS: Glucose 3 Hour Gest 152 mg/dL (76-140)
[2025-04-30 12:15] LABS: Glucose 2 Hour Gest 172 mg/dL (76-155)
== END ==
PROVIDERS: PCP Family Medicine; Referring Provider Obstetrics & Gynecology; Visit Provider Obstetrics & Gynecology
DX: R73.09 Other abnormal glucose (principal)
CPT/HCPCS: 36415; 82951; 82952

== ENCOUNTER 2025-05-06 08:31 | Outpatient (CLI) | payer OTHER, SELFPAY ==
--- NOTE | 2025-05-06 08:51 | P.TNLD_ITS ---
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 Rectal bleeding Hematuria Family history of MS (multiple sclerosis) Left axillary pain History of abnormal cervical Papanicolaou smear Lower back pain Abnormal Pap smear of cervix (~2013) Surgical History (Updated 09/24/24 @ 14:26 by Jane Douglas, RN) H/O LEEP (~2013) History of urologic surgery (12/29/22) [place] teeth extracted (~2018) Family History (Updated 09/24/24 @ 14:31 by Jane Douglas, JAYLA) Grandfather Tuberculosis Grandfather Lung cancer Smoker Grandmother Stomach cancer Father Lymphoma Mother Hyperthyroidism Hypertension Brother Hyperthyroidism Family/Other Liver cancer Family/Other Breast cancer Uncle Stomach cancer Social History marital status: number of children: 1 household members: spouse, family (mom) and children lives independently: Yes caregiver/support person: Yes housing: house pets and animals: No education level: college 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, 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) current occupational exposures/hazards: No special marta needs: No travel history: over 6 months ago seatbelt use: always water heater temp set < 120 deg: Yes working smoke detector in home: Yes fire extinguisher in home: Yes carbon monox detector in home: Yes firearms in home: No do you feel safe at home: Yes Tobacco: How many years used: 6 second hand exposure: Yes ([employer]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
== END 2025-05-06 09:05 | disposition home or self-care (01) ==
LOC: LABOR 08:59 → OB 10:03
PROVIDERS: PCP Family Medicine; Referring Provider Obstetrics & Gynecology; Visit Provider Obstetrics & Gynecology
DX: O24.419 Gestational diabetes mellitus in pregnancy, unspecified control (principal); O09.523 Supervision of elderly multigravida, third trimester; Z3A.36 36 weeks gestation of pregnancy
CPT/HCPCS: 59025; G0378; G0379

== ENCOUNTER → 2025-05-07 08:25 | Outpatient (CLI) | payer OTHER, SELFPAY ==
--- NOTE | 2025-05-07 08:27 | DI.US.S_ITS ---
PROCEDURE: US OB FOLLOW UP INDICATIONS: GROWTH CHECK OUTSIDE/PRIOR DATING DATA: Working DAYAN: 05/28/2025 TECHNIQUE: Real-time scanning was performed of the fetus, with image documentation and biometric measurements. Images were online for review on 05/11/2025 at 10:05 a.m. [facility]. Endovaginal scanning: Not obtained COMPARISON: [facility], , OB FOLLOW UP, 04/08/2025, 7:26. FINDINGS: General: A single living intrauterine gestation is present. Presentation: Vertex. Placenta: Placental position is anterior , without previa. Amniotic fluid index: 3.1 cm, normal range is 5-24 cm. Single deepest vertical pocket is 3.1 cm. heart rate: 153 beats per minute. Maternal cervical canal: 3.1 cm long. Normal lower limit is 2.5 cm. biometrics: Biparietal diameter: 9.0 cm 36 weeks 3 days Head circumference: 33.5 cm 38 weeks 2 days Abdominal circumference: 35.5 cm 39 weeks 3 days Femur length: 6.8 cm 35 weeks 1 day Clinically estimated gestational age: 37 weeks 0 days Composite gestational age from present scan: 37 weeks 2 days Estimated weight and percentile: 3370 g 81st percentile Other: BPP: Tone: 0 Movement: 2 Respiration: 2 Largest pocket: 0 IMPRESSION: Single live intrauterine with gestational age today of 37 weeks 2 days. Marked oligohydramnios. BPP 4/8 After exam patient was taken to the Center. We strive to produce accurate, complete, and clear reports of imaging services. To assist us in improving patient care, this report was composed using standard report templates and voice recognition software. Therefore, it may contain abnormal punctuation, insertions and/or omissions. Occasional wrong-word or sound-alike substitutions may occur. Though we review the report and make efforts to correct it, we do recommend that the report be read carefully in proper context to recognize any text inaccuracies. Dictated by: Bren Garcia M.D. on 05/11/2025 at 14:51 Approved by: Bren Garcia M.D. on 05/11/2025 at 14:59
== END ==
PROVIDERS: PCP Family Medicine; Referring Provider Family Medicine; Visit Provider Obstetrics & Gynecology
DX: O41.03X0 Oligohydramnios, third trimester, not applicable or unspecified (principal); Z3A.37 37 weeks gestation of pregnancy
CPT/HCPCS: 76816; 76819

== ENCOUNTER 2025-05-07 09:19 | Inpatient (IN) | payer OTHER, SELFPAY ==
[2025-05-07 11:49] VITALS: BP 128/74
--- NOTE | 2025-05-07 12:05 | PM.OBHP.IH.1 ---
OB HPI Date/Time Date of admission: 05/07/25 Date Patient Seen: 05/07/25 Time Patient Seen: 11:40 History of Present Condition Chief complaint: NST DAYAN Calculator Estimated Delivery Date Method Current WG Current Estimate 05/28/25 LMP (Certain) 37w 0d Other Estimates 06/02/25 Ultrasound #1 36w 2d Estimated Gestational Age (weeks): 37w0d : 3 Para: 1 Narrative: 39 yo presenting for routine testing for newly dx GDM and found to have BPP of 4 with BERNARDO of 3. Due to BPP 11/04, decsion made to start induction. complicated by anxiety/depression not on meds, fatty liver, AMA, recently dx GDMA1, hypothyroidism on levothyroxine. care: good care Dating criteria OB: LMP confirmed by 1st trimester US Ultrasounds: abnormal US findings Abnormal ultrasound findings: Anatomy US with poorly visualized cardiac outflow tracts on anatomy US and again on 3rd trimester US Obstetrical complications: gestational diabetes Medical complications OB: other Narrative: hypothyrodism Indications Indication for induction OB: other (BPP 4) Preadmission Labs Last OB Lab Results: Blood Type A Positive Today, 10:25 Antibody Screen Negative Today, 10:25 Hct, (36-46) 41.5 % Today, 10:25 Hgb, (12.0-16.0) 14.0 g/dL Today, 10:25 Hep Bs Antigen, (NEGATIVE) Negative s/c 11/19/24, 09:51 Hepatitis C Antibody, (NEGATIVE) Negative s/c 11/19/24, 09:51 Rubella Antibody, (>15) 55.9 IU/mL 11/19/24, 09:51 VZV IgG Antibody, (Non Reactive) Reactive 11/19/24, 09:51 Glucose 1 Hr 50 gm, (76-139) 144 mg/dL H 03/14/25, 10:28 Hemoglobin A1c, (4.0-6.0) 5.2 % 10/15/24, 12:17 Group B Strep (PCR) Presumptive neg gbs 04/29/25, 10:45 Prior (ies) Past Pregnancies Del. Date GA/Weeks Labor Lgth Wt Sex Route Outcome Anesthesia Place Delv Breastfeed Preg Comp Name 03/26/16 39.6 Female vaginal live - full term [place] 6 months [place] 01/25/24 8 spontaneous Delivery Date: 01/25/24 Last Updated by: Jane Douglas RN missed AB, needed D&C; no complications Evaluation Evaluation Baseline heart rate: 140 Variability: Moderate (6-25) monitor accelerations: Present Monitor Decelerations: Absent Contraction Frequency (minutes): 0 Category of Tracing: Reactive Status: Category l Dilation (cm): 0 Effacement (%): 0 Dilation: Closed Effacement: 0-30% station: -3 Position of cervix: mid Consistency: medium Chakraborty score: 2 Non-invasive Membranes Rupture Test: negative [facility] Medical History (Updated 05/06/25 @ 09:39 by Radha Sheikh MD) Gestational diabetes Hypothyroid in , antepartum Family history of lymphoma Missed 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 Rectal bleeding Hematuria Family history of MS (multiple sclerosis) Left axillary pain History of abnormal cervical Papanicolaou smear Lower back pain Abnormal Pap smear of cervix (~2013) Surgical History (Updated 09/24/24 @ 14:26 by Jane Douglas RN) H/O LEEP (~2013) History of urologic surgery (12/29/22) [place] teeth extracted (~2018) Family History (Updated 09/24/24 @ 14:31 by Jane Douglas RN) Grandfather Tuberculosis Grandfather Lung cancer Smoker Grandmother Stomach cancer Father Lymphoma Mother Hyperthyroidism Hypertension Brother Hyperthyroidism Family/Other Liver cancer Family/Other Breast cancer Uncle Stomach cancer Social History marital status: number of children: 1 household members: spouse, family (mom) and children lives independently: Yes caregiver/support person: Yes housing: house pets and animals: No education level: college 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, 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) current occupational exposures/hazards: No special marta needs: No travel history: over 6 months ago seatbelt use: always water heater temp set < 120 deg: Yes working smoke detector in home: Yes fire extinguisher in home: Yes carbon monox detector in home: Yes firearms in home: No do you feel safe at home: Yes Smoking Status: Former smoker Tobacco: How many years used: 6 second hand exposure: Yes (CG client vapes and smokes) alcohol intake: former (occasional glass wine when not ) substance use type: does not use during the past year weight has: remained stable well-balanced diet: daily or most days daily servings fruits/ve or more times/day (more fruit than vegetables) caffeine: Yes (Occasional coffee, green tea after dinner as digestive) Type(s) of exercise: walking Meds Home Medications and Allergies Home Medications ?Medication ?Instructions ?Recorded ?Confirmed ?Type vitamin-ferrous sulfate tab PO 12/27/23 04/29/25 History 27 mg iron-folic acid 0.8 mg tablet levothyroxine 25 mcg tablet 25 mcg PO .every other day #45 tabs 04/08/25 05/07/25 Rx breast pump #1 ea 04/15/25 05/07/25 Rx Held on 05/07/25. Instructions: not using at this moment blood sugar diagnostic (Blood #100 ea 05/01/25 05/07/25 Rx Glucose Test strips) blood-glucose meter (Blood Glucose #1 ea 05/01/25 05/07/25 Rx Monitoring kit) lancets #100 ea 05/01/25 05/07/25 Rx Allergies Allergy/AdvReac Type Severity Reaction Status Date / Time No Known Drug Allergies Allergy Verified 05/07/25 09:50 Review of Systems Review of Systems Narrative: - regular contractions + LOF + movement - vaginal bleeding OB Exam Narrative Exam Narrative: GEN: comfortable appearing Pulm: breathing comfortably on RA ABd: gravid MSK: laying in bed, moving all extremities neuro: non-focal SVE: closed/thck/hgh Objective Labs 05/07/25 10:25 Assessment and Plan Assessment and Plan Assessment and Plan narrative: 39 yo presenting for routine testing for newly dx GDM and found to have BPP of 4/8 with BERNARDO of 3. Due to BPP 4/8, decsion made to start induction. # SIUP at term # BPP 4/8 # oligohydramnnios, with BERNARDO of 3: - admit to LD - continuous monitoring - Anesthesia consult - Cytotec, 25mcg x1 then increase to 50mcg - CBC, TS - cephalic by BPP US - GBS unknown, rapid GBS sent Hypothyroidism: - continue Levothyroxine 25mcg daily GDMA1: recently dx, plan to check blood sugars during admission - in lately labor, check fasting and 1hr PP - adjust glucose check frequency based on early checks Poorly visualized cardiac outflow tracts on US x2: - awareness for toll patrolman after delivery , consider toll patrolman at bedside if any concerns on monitoring Anxiety /depression: not on meds - awareness Time-Based Coding :: [TOTAL MINUTES] spent with patient and on the chart (including review of chart, obtaining history, exam, reviewing outside data, placing orders, documenting exam and treatment plan, and counseling patient) on [DATE].
[2025-05-07 12:14] LABS: Add Manual Diff / Slide Review NO; Hematocrit 41.5 % (36-46); Hemoglobin 14.0 g/dL (12.0-16.0); Lymphocytes Absolute Auto 900 /uL (1100-4500); Mean Corpuscular HGB Conc 33.7 % (30-36); Mean Corpuscular Hemoglobin 28.7 PG (26-34); Mean Corpuscular Volume 85.3 fL (80-100); Platelet Count 280 X10^3/uL (150-400)
--- NOTE | 2025-05-07 17:50 | P.PNOB_ITS ---
Date/Time Date Patient Seen: 05/07/25 Time Patient Seen: 17:51 Pain Control Pain control: tolerating well Comments: Noting more contraction and cramping, + FM Pelvic Exam Dilation (cm): 0 Effacement (%): 0 station: -3 Amniotic membrane status: Intact Contractions Contractions on admission: irregular Monitor mode: None Contraction frequency (min): 3 Contraction pattern: Regular Contraction intensity: Mild Status status: Category l Heart Rate Baseline: 135 Monitor Accelerations: Present Monitor Decelerations: Absent Monitor Variability: Moderate Assessment and Plan Assessment: induction ongoing Plan: continuous present management Comments: 39 yo presenting for routine testing for newly dx GDM and found to have BPP of 4/8 with BERNARDO of 3. Due to BPP 4/8, decsion made to start induction. # SIUP at term # BPP 4/8 # oligohydramnnios, with BERNARDO of 3: FHT reassuring thurs far, cat 1 - continuous monitoring - Anesthesia consult - Cytotec, 25mcg x1, 50mcg x1 --> continue with cytotec for now - cephalic by BPP US - GBS unknown, rapid GBS sent and pending # Hypothyroidism: - continue Levothyroxine 25mcg daily # GDMA1: recently dx, plan to check blood sugars during admission - in lately labor, check fasting and 1hr PP - adjust glucose check frequency based on early checks # Poorly visualized cardiac outflow tracts on US x2: - awareness for small machine bindery operator after delivery , consider small machine bindery operator at bedside if any concerns on monitoring # Anxiety /depression: not on meds - awareness
[2025-05-08] MEDS: LEVOTHYROXINE 25 MCG TABLET PO (07:03)
--- NOTE | 2025-05-08 07:40 | P.PNOB_ITS ---
Date/Time Date Patient Seen: 05/08/25 Time Patient Seen: 07:30 Pain Control Pain control: tolerating well Pelvic Exam Dilation (cm): 1 Effacement (%): 50 station: -3 Amniotic membrane status: Intact Contractions Contractions on admission: irregular Monitor mode: None Contraction frequency (min): 3 Contraction pattern: Regular Contraction intensity: Mild Status status: Category l Heart Rate Baseline: 120 Monitor Accelerations: Present Monitor Decelerations: Absent Monitor Variability: Moderate Assessment and Plan Assessment: induction ongoing Plan: continuous present management Comments: 39 yo presenting for routine testing for newly dx GDM and found to have BPP of 4/8 with BERNARDO of 3. Due to BPP 4/8, decsion made to start induction. # SIUP at 37w1d # BPP 4/8 # oligohydramnnios, with BERNARDO of 3: FHT reassuring thus far, cat 1 - continuous monitoring - Anesthesia consult, planning on epidural but not quite ready yet - Cytotec, 25mcg x1, 50mcg x3 - Tesfaye placed at 07:45 - 1 more dose of cytotec per protocol, consider switch to low dose pit 4hr after dose pending changes with tesfaye - cephalic by BPP US - GBS negative # Hypothyroidism: - continue Levothyroxine 25mcg daily # GDMA1: recently dx, plan to check blood sugars during admission - in lately labor, check fasting and 1hr PP - adjust glucose check frequency based on early checks # Poorly visualized cardiac outflow tracts on US x2: - awareness for grain broker and market operator after delivery , consider grain broker and market operator at bedside if any concerns on monitoring # Anxiety / depression: not on meds - awareness
[2025-05-08] MEDS: fentaNYL 100 MCG/2 ML INJ 50 MCG IV (07:48)
[2025-05-08] MEDS: LACTATED RINGERS 1,000 ML 100 ML IV ×2 (10:10→17:27)
--- NOTE | 2025-05-08 10:59 | PM.AN.REGBLK ---
Regional Block Pre-procedure Procedure: Continuous Lumbar Epidural for L&D Attending OB provider: Kimberly Dan PMH/ROS narrative: with PMH of hypothyroid and diet-controlled GDM presents for IOL d/t 11/04 BPP + oligo, requests IAM for labor pain. PSH/Anesthesia history narrative: Previous vaginal delivery with uncomplicated epidural. Exam narrative: See pre-anesthesia eval form. ASA Class: III Labs: Hct 41.5 % (36-46) 05/07/25 10:25 Plt Count 280 X10^3/uL (150-400) 05/07/25 10:25 Medications: Current Medications Generic Name Dose Route Start Last Admin Trade Name Freq PRN Reason Stop Dose Admin Butorphanol Tartrate 0.5 mg 05/08/25 10:57 Butorphanol 1 Mg/Ml Vial IV Q3H PRN Pruritis Calcium Carbonate 1,000 mg 05/07/25 11:57 Calcium Carbonate 500 Mg Tab PO Q2HR PRN Dyspepsia Carboprost Tromethamine 250 mcg 05/07/25 11:57 Carboprost 250 Mcg/Ml Ampul IM Q90M PRN Bleeding Diphenhydramine HCl 25 mg 05/08/25 10:57 Diphenhydramine 50 Mg/Ml Vial IV Q3H PRN Pruritis Ephedrine Sulfate 10 mg 05/08/25 10:57 Ephedrine 50 Mg/Ml Vial IV Q5M PRN Blood Pressure - Low Fentanyl 50 mcg 05/07/25 11:57 05/08/25 07:48 Fentanyl 100 Mcg/2 Ml Inj IV 50 mcg Q1H PRN Administration Pain, Moderate (4-6) Oxytocin/Lactated Ringer's 30 unit in 500 mls @ 200 mls/hr 05/07/25 11:57 Oxytocin Premix IV CONT PRN Bleeding Protocol Tranexamic Acid 1,000 mg/ 100 mls @ 600 mls/hr 05/07/25 11:57 Sodium Chloride IV NOW PRN Bleeding Lactated Ringer's 1,000 mls @ 999 mls/hr 05/08/25 10:57 Lactated Ringers IV 05/08/25 11:57 BOLUS ONE FENT 2MCG/ML BUPIV 0.125% EPI 200 mcg in 100 mls @ 8 mls/hr 05/08/25 10:51 Fentanyl/Bupiv/Ns 2mcg/Ml - 0.125% EPIDURAL CONT [facility] Protocol Levothyroxine Sodium 25 mcg 05/08/25 06:00 05/08/25 07:03 Levothyroxine 25 Mcg Tablet PO 25 mcg DAILY@0600 [facility] Administration Lidocaine HCl 20 ml 05/07/25 11:57 Lidocaine 1% 20 Ml INJ INTRA-OP PRN Post Delivery Methylergonovine Maleate 0.2 mg 05/07/25 11:57 Methylergonovine 0.2 Mg Tablet PO Q6HR PRN Heavy Bleeding Methylergonovine Maleate 0.2 mg 05/07/25 11:57 Methylergonovine 0.2 Mg/Ml Vial IM NOW PRN Bleeding Metoclopramide HCl 10 mg 05/08/25 10:57 Metoclopramide 10 Mg/2 Ml Inj IV Q4H PRN Nausea And Vomiting Mineral Oil 30 ml 05/07/25 11:57 Mineral Oil 30 Ml Udc TOP PRN PRN Version Misoprostol 800 mcg 05/07/25 11:57 Misoprostol 200 Mcg Tablet [place] NOW PRN Bleeding Misoprostol 400 mcg 05/07/25 11:57 Misoprostol 200 Mcg Tablet SL NOW PRN Bleeding Misoprostol 50 mcg 05/07/25 16:30 05/08/25 08:32 Misoprostol 25 Mcg Tablet PO 50 mcg QID [facility] Administration Misoprostol 50 mcg 05/08/25 00:30 05/08/25 04:28 Misoprostol 25 Mcg Tablet PO 50 mcg Q4H [facility] Administration Nalbuphine HCl 5 mg 05/08/25 10:57 Nalbuphine 20 Mg/Ml Ampul IV Q6H PRN Pruritis Naloxone HCl 0.2 mg 05/07/25 11:57 Naloxone 0.4 Mg/Ml Vial IV Q2MIN PRN Opiate Reversal Naloxone HCl 0.2 mg 05/08/25 10:57 Naloxone 0.4 Mg/Ml Vial IV Q2MIN PRN Opiate Reversal Ondansetron HCl 4 mg 05/07/25 11:57 Ondansetron 4 Mg/2 Ml Inj IV Q4HR PRN Nausea And Vomiting Ondansetron HCl 4 mg 05/08/25 10:57 Ondansetron 4 Mg/2 Ml Inj IV Q4H PRN Nausea And Vomiting Oxytocin 10 unit 05/07/25 11:57 Oxytocin 10 Unit/Ml Vial IM NOW PRN Bleeding Allergies: Allergies Allergy/AdvReac Type Severity Reaction Status Date / Time No Known Drug Allergies Allergy Verified 05/07/25 09:50 Procedure Insertion date: 05/08/25 Insertion time: 10:44 Prep/Local: 1% lidocaine (CHG to back for skin prep) Interspace: L4/5 Patient position: sitting Needle: 18 gauge Hustead Loss of resistance with: saline DEBBIE at (cm): 5 Catheter placed at SKIN (cm): 12 Catheter in SPACE (cm): 7 Insertion: No CSF, No Blood, No Paresthesia with insertion, No Paresthesia with injection and No Test dose reaction Initial Medications TEST DOSE time: 10:45 TEST DOSE: 1.5% lidocaine with epinephrine 1:200k (mL): 3 BOLUS DOSE time: 10:51 BOLUS DOSE (mL): 10 BOLUS DOSE med: other (infusate) Infusion INFUSION: 0.125% bupivacaine and with fentanyl 2 mcg/mL Initial rate (mL/hr): 8 Post-procedure Anesthesia date START: 05/08/25 Anesthesia time START: 10:37 Anesthesia date END: 05/09/25 Anesthesia time END: 18:22 Post-procedure Anesthesia Assessment: Yes CV function: HR/BP stable, Yes Resp function: RR/sat/airway adequate, Yes Post-op hydration adequate, Yes Pain control adequate, Yes Nausea & vomiting absent, Yes Temperature > 36 C, Yes Mental status appropriate and No Anesthesia complications
[2025-05-08] MEDS: OXYTOCIN PREMIX 30 UNIT/500 ML PLAST..BAG IV (14:52)
--- NOTE | 2025-05-08 17:15 | PM.OBPNLAB ---
Date/Time Date Patient Seen: 05/08/25 Time Patient Seen: 17:15 Pain Control Pain control: tolerating well and epidural Comments: tolerating well but getting more uncomfortable due to pressure Pelvic Exam Dilation (cm): 10 Effacement (%): 100 station: -1 Amniotic membrane status: Bulging Comments: AROM at 17:01 with small volume clear fluid Contractions Monitor mode: None Contraction frequency (min): 1 Contraction pattern: Regular Contraction intensity: Strong/Firm Status status: Category l Heart Rate Baseline: 135 Monitor Accelerations: Present Monitor Decelerations: Absent Monitor Variability: Moderate Assessment and Plan Assessment: induction ongoing Plan: continuous present management Comments: 39 yo presenting for routine testing for newly dx GDM and found to have BPP of 4/8 with BERNARDO of 3. Due to BPP 4/8, decision made to start induction. # SIUP at 37w1d # BPP 4/8 # oligohydramnnios, with BERNARDO of 3: FHT reassuring thus far, cat 1 - continuous monitoring - Anesthesia consult, planning on epidural but not quite ready yet - Cytotec x24 hours - Ocampo placed at 07:45 today - fell out at 10:00 - Picotin augmentation initiated at 14:50, now at 10mu/min - AROM with clear fluid at 17:00 - cephalic by BPP US - GBS negative # Hypothyroidism: - continue Levothyroxine 25mcg daily # GDMA1: recently dx, plan to check blood sugars during admission. Blood glucoses well controlled. # Poorly visualized cardiac outflow tracts on US x2: - awareness for direct marketing executive after delivery , consider direct marketing executive at bedside if any concerns on monitoring # Anxiety / depression: not on meds - awareness
[2025-05-08] MEDS: FENT 2MCG/ML BUPIV 0.125% EPI 200 MCG/100 ML PLAST..BAG 8 MCG EPIDURAL (17:27)
--- NOTE | 2025-05-08 18:53 | PM.OBPRVD ---
Events: Gestational Diabetes and Oligohydramnios Labor & Delivery Delivery date: 05/08/25 Delivery Time: 18:22 Cervical ripening method: per misoprostal protocol Induction method: other (tesfaye baloon) Delivery augmentation: rupture of membranes and pitocin Delivery monitor: external FHT Route of delivery: L&D Laceration Description: Perineal - 1st Degree Delivery repair: vicryl Estimated blood loss (mL): 350 Anesthesia Type: Epidural Narrative: 39 yo at 37w0d presented for routine testing for newly dx GDM and was found to have BPP of 4/8 with BERNARDO of 3. Due to non-reassuring testing with oligohydramnios, decision made to proceed with induction. She was started on Po cytotec for cervical ripening then a Tesfaye balloon was placed. The balloon fell out after 2 hours and she was started on Pitoicn. She progressed and achieved complete cervical dilation with a bulging bag. AROM occured at 17:01 with clear fluid. Pain was controlled with an epidural. With pushing, infant was noted to have decreased heart tones. Multiple positions were attempted with short term improvement in HR. Due to rapid rate of descent in station, decision made to continue to push while preparing to place Kiwi Vacuum. HR decreased to 60- 90 intermittently for 10 minutes. While preparing to place Vaccuum, mom pushed rapidly to and delivered a vigorous female with APGARs of 8/9 at 18:22 out of NAEEM. The cord was cut and clamped after a 60 second delay. The placenta delivered with gentle cord traction, and appeared complete although small with a thin cord. The perineum and vagina were inspected with a small 1st degree perineal laceration which was repaired in the usual fashion. Needle and sponge counts were correct.? The vagina was inspected and no items were left in situ. PREPROCEDURE DIAGNOSIS: Intrauterine at 37w1d Decreased BPP Oligohydramnios GBS neg RH positive Hypothyroidism GDMA1 Anxiety/depression in Poorly visualized cardiac outflow tracts on Anatomy US NAFLD AMA POSTPROCEDURE DIAGNOSIS: Intrauterine at 37w1d, delivered Same as preprocedure Baby Elisse: gender: Female Presentation: vertex Position: Left Occiput Anterior Placenta delivery description: Spontaneous Cord Vessel Description: 3 Vessels score (1 min): 8 score (5 min): 9 Plan for aftercare: Routine care
[2025-05-08] MEDS: ACETAMINOPHEN 325 MG TABLET 650 MG PO (21:04)
[2025-05-08] MEDS: LANOLIN OINT 7 GM 1 APPLIC TOP (21:05)
[2025-05-08] MEDS: DERMOPLAST SPRAY 20% 60 ML 1 SPRAY TOP (21:05)
[2025-05-08] MEDS: IBUPROFEN 600 MG TABLET PO (21:12)
[2025-05-09] MEDS: ACETAMINOPHEN 325 MG TABLET 650 MG PO ×3 (02:59→15:05)
[2025-05-09] MEDS: IBUPROFEN 600 MG TABLET PO ×3 (02:59→15:06)
--- NOTE | 2025-05-09 13:16 | PM.OBDS.1 ---
Discharge Providers Provider Date of admission: 05/07/25 09:19 Discharge Date: 05/09/25 Primary care physician: Lynne Castanon DO Consults: 05/07/25 11:58 Consult to Anesthesiology Urgent Comment: Consulting Provider: Anesthesiologist Reason for consultation: Epidural 05/08/25 19:18 Consult to Sales Product Specialist Routine Comment: Discharge provider: Radha Richardson DO Summary Hospital Course Date Patient Seen: 05/09/25 Time Patient Seen: 13:16 Diagnoses: S/p vaginal delivery Hospital Course: The patient was admitted for non-reassuring status, in the setting of gestational diabetes and oligohydramnios. Induction was accomplished with cervical ripening and Pitocin. She progressed into active labor and had a vaginal delivery on hospital day 2. Delivery complicated by a first-degree perineal laceration. the patient did well. She was tolerating a normal diet. Her bleeding was well controlled . Her vital signs remained stable and her hemoglobin was in the normal range. Peripartum Data Delivery Method: Natural Vaginal Laceration Description: Perineal - 1st Degree complications: none 1: Gender: Female Disposition of : home Discharge Diagnosis (1) Vaginal delivery: Start Date: 05/08/25 Status: Acute Problem Details: Routine care (2) Gestational diabetes: Status: Acute Problem Details: No indication for immediate glucose testing. Resume normal diet. We will plan for 2 hour glucose tolerance test between 6 and 12 weeks . Status at Discharge Cognitive/behavioral status at discharge: oriented Time Spent with Patient Time attestation: Total time spent providing and/or coordinating discharge services: Time spent: Greater than 30 minutes Objective Labs 05/07/25 10:25 Exam Const General: cooperative, healthy appearing and well developed Orientation: alert and oriented x3 HENMT Head: normocephalic and atraumatic Resp Effort & Inspection: normal respiratory effort GI Palpation: soft and No tender Other: Fundus firm 1 below the umbilicus Extrem General: normal to inspection and no pedal edema Psych Appearance: grossly normal Discharge Plan Discharge Plan Patient Disposition: Home Discharge orders & Medications Prescriptions: New ibuprofen 600 mg tablet 600 mg PO Q6H PRN (Reason: Pain) Qty: 60 0RF docusate sodium [Colace] 100 mg capsule 100 mg PO BID Qty: 60 0RF Continued levothyroxine 25 mcg tablet 25 mcg PO .every other day Qty: 45 3RF vit-ferrous sulfat-FA 27 mg iron- 0.8 mg tablet PO (DME) breast pump Device See Rx Instructions .ROUTE .MEDSUPPLY Qty: 1 0RF Rx Instructions: double electric breast pump Discontinued (DME) Blood Glucose Test Strip See Rx Instructions .ROUTE .MEDSUPPLY Qty: 100 3RF Rx Instructions: Please check am fasting BS, and 2 hours after breakfast/lunch/dinner (DME) lancets Misc See Rx Instructions .ROUTE .MEDSUPPLY Qty: 100 3RF Rx Instructions: Check bs am fasting and 2 hours after each meal (DME) blood-glucose meter [Blood Glucose Monitoring] Kit See Rx Instructions .ROUTE .MEDSUPPLY Qty: 1 0RF Rx Instructions: check am fasting blood sugar, and 2 hours after breakfast, lunch and dinner. Follow up/Referrals: Lynne Castanon DO [Primary Care Provider, Medical] Discharge Health Status Multidrug resistant organism: No MDRO Diet/Activity/Treatments Diet: Diet as Tolerated Activity: As tolerated. Noting in the vagina for 6 weeks - no tampons or douching. please use pads only. No intercourse. Cold/Heat Therapy: Hot packs or cold packs may be useful for lower pelvic or perineal discomfort Skin/Wound/Dressing Care Skin care: Okay to use perineal spray and witch Charlene pads Report to your healthcare provider any signs of infection, such as:: chills, fever, increased pain and unusual drainage Visit Report/Discharge Packet Stand Alone Forms: Patient Portal/API, Stroke Signs & Symptoms Discharge Data Primary Care Provider: Lynne Castanon Attending Provider: Kimberly Dan Admit Date/Time: 05/07/25 09:19
[2025-05-09 17:29] VITALS: BP 128/74
== END 2025-05-09 17:10 | disposition home or self-care (01) | DRG 806 ==
PROVIDERS: Admitting Provider Family Medicine; PCP Family Medicine; Referring Provider Family Medicine; Visit Provider Family Medicine
DX: O28.8 Other abnormal findings on antenatal screening of mother (principal); O41.03X0 Oligohydramnios, third trimester, not applicable or unspecified; Z37.0 Single live birth; Z3A.37 37 weeks gestation of pregnancy; O24.429 Gestational diabetes mellitus in childbirth, unspecified control; O99.284 Endocrine, nutritional and metabolic diseases complicating childbirth; E03.9 Hypothyroidism, unspecified; O99.344 Other mental disorders complicating childbirth; F32.A Depression, unspecified; F41.9 Anxiety disorder, unspecified; Z67.10 Type A blood, Rh positive; O76 Abnormality in fetal heart rate and rhythm complicating labor and delivery; K76.0 Fatty (change of) liver, not elsewhere classified; O99.62 Diseases of the digestive system complicating childbirth; O70.0 First degree perineal laceration during delivery
CPT/HCPCS: 36415; 59050; 59200; 76816; 76819; 82962; 84112; 85025; 86850; 86900; 86901; G0378; G0379; J2590; J3010; J7120